=== PATIENT | male | born 1950 | race Caucasian/White ===

== ENCOUNTER → 2020-11-23 14:29 | Outpatient (BNVA) | payer MEDICARE, SELFPAY | PROVIDERS: PCP Internal Medicine; Visit Provider Internal Medicine Cardiovascular Disease | DX: I48.91 Unspecified atrial fibrillation (principal) | CPT/HCPCS: 93005; 99212 ==

== ENCOUNTER → 2020-12-12 14:59 | Outpatient (REF) | payer MEDICARE, SELFPAY ==
--- NOTE | 2020-12-12 11:50 | ECG_ITS ---
Hook-up date: 2020-12-12 16:18:00 Duration: 23:57:00 Test Indications: UNSPEC ATRIAL FIB Medications: [id number] QRS complexes 511 Ventricular ectopics which represent <1 % of total QRS comp. * Supraventricular ectopics which represent % of total QRS comp. * Paced QRS complexs which represent % of total QRS comp. VENTRICULAR ECTOPY 511 Isolated 0 Bigeminal Cycles 0 Couplets 0 Runs 0 Beats in Runs * Beats LONGEST at * BPM at :: -- * Beats FASTEST at * BPM at :: -- SUPRAVENTRICULAR ECTOPY * Isolated * Couplets * Runs * Beats in Runs * Beats LONGEST at * BPM at :: -- * Beats FASTEST at * BPM at :: -- HEART RATES 41 MIN at 12:33:24 2020-12-13 83 AVG 138 MAX at 19:37:10 2020-12-12 LONGEST RR 3.0160 secs at 11:52:37 2020-12-13 S-T LEVELS Channel 1 - 128 mm at 16:18:00 2020-12-12 - 128 mm at 16:18:00 2020-12-12 Channel 2 - 128 mm at 16:18:00 2020-12-12 - 128 mm at 16:18:00 2020-12-12 Channel 3 - 128 mm at 03:53:71 -- - 128 mm at 03:53:71 Basic rhythm Atrial fibrillation No long pause or profound bradycardia Adequate rate control with average HR of 83 bpm Occasional Premature ventricular complexes No diary submitted Referred By: Abdulaziz Chen Overread By: SUNITA MON MD
== END ==
LOC: HO.CARD 14:59
PROVIDERS: PCP Internal Medicine; Visit Provider Internal Medicine Cardiovascular Disease
DX: I48.91 Unspecified atrial fibrillation (principal)
CPT/HCPCS: 93226

== ENCOUNTER → 2021-02-15 14:07 | Outpatient (BNVA) | payer MEDICARE, SELFPAY | PROVIDERS: PCP Internal Medicine; Visit Provider Internal Medicine Cardiovascular Disease | DX: I48.91 Unspecified atrial fibrillation (principal); Z79.899 Other long term (current) drug therapy | CPT/HCPCS: 99212 ==

== ENCOUNTER → 2021-04-06 12:28 | Outpatient (BNVA) | payer MEDICARE, SELFPAY | PROVIDERS: PCP Internal Medicine; Referring Provider Internal Medicine; Visit Provider Internal Medicine Cardiovascular Disease | DX: I48.91 Unspecified atrial fibrillation (principal) | CPT/HCPCS: 93005; 99212 ==

== ENCOUNTER 2022-02-22 07:53 | Outpatient (REF) | payer OTHER, SELFPAY ==
[2022-02-22 08:16] LABS: Appearance Urine CLEAR; Color Urine DK YELLOW; Glucose Urine UA NEG (NEG); Leukocyte Esterase Urine TRACE (NEG); Nitrite Urine POS (NEG); Urine Blood 2+ (NEG); Urine Ketones 5 MG/DL (NEG); Urine Protein TRACE MG/DL (NEG-TRACE)
[2022-02-22 08:43] LABS: Amorphous Sediment Urine 2+ /LPF; Renal Epithelial Cells Urine TRACE /LPF; Squamous Epithelial Cell Urine TRACE /LPF
[2022-02-22 08:46] LABS: Bacteria Urine TRACE /LPF
== END 2022-02-22 07:54 | disposition home or self-care (01) ==
LOC: HO.LAB 07:53
PROVIDERS: Visit Provider Internal Medicine
DX: R30.0 Dysuria (principal)
CPT/HCPCS: 81001; 87086; 87088

== ENCOUNTER 2022-03-12 14:04 | Outpatient (REF) | payer MEDICARE, SELFPAY ==
[2022-03-12 14:45] LABS: Appearance Urine CLOUDY; Color Urine YELLOW; Glucose Urine UA NEG (NEG); Leukocyte Esterase Urine 2+ (NEG); Nitrite Urine NEG (NEG); Urine Blood 1+ (NEG); Urine Ketones 5 MG/DL (NEG); Urine Protein 1+ MG/DL (NEG-TRACE)
[2022-03-12 15:04] LABS: Bacteria Urine 3+ /LPF; Squamous Epithelial Cell Urine 1+ /LPF
== END 2022-03-12 14:05 | disposition home or self-care (01) ==
LOC: HO.LNP 14:04
PROVIDERS: Visit Provider Internal Medicine
DX: R30.0 Dysuria (principal)
CPT/HCPCS: 81001; 87086; 87088; 87186

== ENCOUNTER 2022-04-03 17:45 | Emergency (ER) | payer MEDICARE, SELFPAY ==
[2022-04-03 17:51] VITALS: BP 114/70; PULSE 77; RESP 18; TEMP 36.5; O2SAT 99; BMI 29.5
[2022-04-03 18:16] LABS: Appearance Urine HAZY; Color Urine YELLOW; Glucose Urine UA NEG (NEG); Leukocyte Esterase Urine 3+ (NEG); Nitrite Urine POS (NEG); PH 7.5 (5.0-8.0); Specific Gravity - Urine 1.015 (1.005-1.025); UACC Culture Trigger YES; Urine Blood 1+ (NEG); Urine Ketones 15 MG/DL (NEG); Urine Protein TRACE MG/DL (NEG-TRACE)
[2022-04-03 18:22] LABS: WBC Urine TNTC /HPF (0-4)
[2022-04-03 18:23] LABS: Bacteria Urine 3+ /LPF
[2022-04-03 18:28] LABS: MANUAL DIFF FLAG NO
[2022-04-03 18:43] LABS: Alanine Aminotransferase 17 U/L (0-40); Alkaline Phosphatase 77 U/L (39-117); Anion Gap 15 (12-20); Aspartate Amino Transferase 21 U/L (5-37); Bilirubin Total 1.8 mg/dL (0.0-1.0); Blood Urea Nitrogen 13 mg/dL (9-16); Calcium 9.4 mg/dL (8.4-10.2); Carbon Dioxide 24 mmol/L (22-29); Chloride 104 mmol/L (96-108); Creatinine Clr Calc Pharmacy 96.6; Estimated Glomerular Filt Rate > 60; Glucose Random 89 mg/dL (60-115); Potassium 4.3 mmol/L (3.3-5.1); Sodium 139 mmol/L (135-145); Total Protein 6.7 g/dL (6.5-8.0)
[2022-04-03 18:51] LABS: Basophils Percent Auto 0.3 % (0-2); Eosinophils Absolute Auto 0.1 X10*3/uL (0.0-0.4); Eosinophils Percent Auto 1.1 % (0-4); Hematocrit 49.5 % (42.0-52.0); Hemoglobin 16.3 g/dl (14.0-18.0); Imm Gran Abs Auto 0.03 X10*3/uL (0.00-0.03); Imm Gran Pct Auto 0.5 % (0.0-0.4); Lymphocytes Absolute Auto 1.3 X10*3/uL (1.2-4.9); Lymphocytes Percent Auto 19.9 % (20-40); Mean Corpuscular HGB Conc 32.9 g/dl (31.0-36.0); Mean Corpuscular Hemoglobin 29.5 pg (27.0-33.0); Mean Corpuscular Volume 89.7 fL (80.0-98.0); Mean Platelet Volume 10.1 fL (9.4-12.4); Monocytes Absolute Auto 0.5 X10*3/uL (0.1-1.2); Monocytes Percent Auto 8.4 % (2-11); Neutrophils Absolute Auto 4.4 x10*3/uL (2.0-8.3); Neutrophils Percent Auto 69.8 % (45-73); Platelet Count 213 X10*3/uL (160-400); Red Blood Count 5.52 X10*6/uL (4.60-5.80); Red Cell Distribution Width 13.1 % (11.0-16.0); White Blood Count 6.3 X10*3/uL (4.8-10.8)
[2022-04-04 01:44] VITALS: BP 138/80; PULSE 97; RESP 16; TEMP 36.1; O2SAT 98
--- NOTE | 2022-04-04 02:05 | ED_ITS ---
HPI - Male Genitourinary General Chief complaint: Urogenital-Male Stated complaint: Bladder Kidney Infection Time Seen by Provider: 04/04/22 01:25 Source: patient Mode of arrival: ambulatory History of Present Illness HPI Narrative: 71-year-old male who reports urine running down his leg and states that is difficult for him to completely empty his bladder and he has been on 4 courses of antibiotics without success. Patient states he is currently without fever, chills, nausea, vomiting but states he has started to experience his urinary infection symptoms again with frequency, burning. Related Data Previous Rx's Medication Instructions Recorded sulfamethoxazole 800 1 tab PO Q12H 14 Days #28 tab 04/04/22 mg-trimethoprim 160 mg tablet (Bactrim DS) Allergies Allergy/AdvReac Type Severity Reaction Status Date / Time No Known Allergies Allergy Verified 04/03/22 17:50 Review of Systems Review of Systems: Pertinent positives and negatives as stated in HPI 10 point review of systems is otherwise negative. PMFSH Past Medical History Source: nursing notes reviewed Social History Social History Advance Directives: No Physical Exam Vital Signs: Vital Signs: Last Vital Signs Temp 97.0 F 04/04/22 01:44 Pulse 97 04/04/22 01:44 Resp 16 04/04/22 01:44 BP 138/80 04/04/22 01:44 Pulse Ox 98 04/04/22 01:44 BMI result Body Mass Index 29.5 VITAL SIGNS: Reviewed. GENERAL: Well developed, well nourished, in no acute distress. HEAD: Normocephalic/atraumatic EYES: PERRLA, EOMI EARS: Ext canals without abnormality OROPHARYNX: no oral lesions noted, posterior pharynx clear LUNGS: Normal breath sounds. No adventitious sounds or accessory muscle use. SpO2<98> CARDIOVASCULAR: Regular rate and rhythm without noted murmurs ABDOMEN: Soft, non-tender, non-distended with bowel sounds. NEUROLOGIC: Alert and oriented x 4. Course Course Course Narrative: 71-year-old male with history and clinical presentation consistent overflow incontinence, enlarged prostate, and likely incomplete resolution of urinary tract infections secondary to enlarged prostate resulting in high PVRs. After discussion with the patient and his daughter who is at bedside he agreed to have the Mason catheter placed, PVRs are being done, he will receive initial antibiotics and then be discharged home and has an appointment with Urology on 04/20. MDM - Male Genitourinary Lab Data Result diagrams: 04/03/22 18:00 04/03/22 18:00 Labs: Lab Results 04/03/22 04/03/22 04/03/22 Range/Units 18:00 18:00 18:09 WBC 6.3 (4.8-10.8) X10*3/uL RBC 5.52 (4.60-5.80) X10*6/uL Hgb 16.3 (14.0-18.0) g/dl Hct 49.5 (42.0-52.0) % MCV 89.7 (80.0-98.0) fL MCH 29.5 (27.0-33.0) pg MCHC 32.9 (31.0-36.0) g/dl RDW 13.1 (11.0-16.0) % Plt Count 213 (160-400) X10*3/uL MPV 10.1 (9.4-12.4) fL Immature Gran % (Auto) 0.5 H (0.0-0.4) % Neut % (Auto) 69.8 (45-73) % Lymph % (Auto) 19.9 L (20-40) % [place] % (Auto) 8.4 (2-11) % Eos % (Auto) 1.1 (0-4) % Baso % (Auto) 0.3 (0-2) % Lymph # (Auto) 1.3 (1.2-4.9) X10*3/uL [place] # (Auto) 0.5 (0.1-1.2) X10*3/uL Eos # (Auto) 0.1 (0.0-0.4) X10*3/uL Baso # (Auto) 0.0 (0.0-0.2) X10*3/uL Abs Immat Gran (auto) 0.03 (0.00-0.03) X10*3/uL Absolute Neuts (auto) 4.4 (2.0-8.3) x10*3/uL Absolute Nucleated RBC 0.000 (0.0-0.012) X10*3/uL Nucleated RBC % (auto) 0.0 (0.0-0.2) /100WBC Sodium 139 (135-145) mmol/L Potassium 4.3 (3.3-5.1) mmol/L Chloride 104 (96-108) mmol/L Carbon Dioxide 24 (22-29) mmol/L Anion Gap 15 (12-20) BUN 13 (9-16) mg/dL Creatinine 0.89 (0.5-1.4) mg/dL Estim Creat Clear Calc 96.6 Estimated GFR > 60 Random Glucose 89 (60-115) mg/dL Calcium 9.4 (8.4-10.2) mg/dL Total Bilirubin 1.8 H (0.0-1.0) mg/dL AST 21 (5-37) U/L ALT 17 (0-40) U/L Alkaline Phosphatase 77 (39-117) U/L Total Protein 6.7 (6.5-8.0) g/dL Albumin 4.0 (3.5-5.0) g/dL Urine Color YELLOW Urine Appearance HAZY Urine pH 7.5 (5.0-8.0) Ur Specific [place] 1.015 (1.005-1.025) Urine Protein TRACE (NEG-TRACE) MG/DL Urine Glucose (UA) NEG (NEG) MG/DL Urine Ketones 15 (NEG) MG/DL Urine Blood 1+ H (NEG) Urine Nitrite POS H (NEG) Ur Leukocyte Esterase 3+ H (NEG) Urine RBC 5-9 H (0) /HPF Urine WBC TNTC H (0-4) /HPF Ur Squamous Epith Cells NONE /LPF Urine Bacteria 3+ /LPF Discharge Plan Discharge Clinical Impression: Enlarged prostate, Overflow incontinence, Acute UTI, Difficult Mason catheter placement Patient Disposition: Home, Self-Care Instructions: Urinary Incontinence (ED), Urinary Tract Infection in Men (DC), Mason Catheter Placement and Care (ED) Additional Instructions: 1. Resume all home medications as prescribed. 2. You may drink coffee, soda, water as much as you want to. 3. You need to complete the entire course of antibiotics as prescribed. 4. Keep the appointment with your primary care provider/urologist. Return to the ER for worsening symptoms. Prescriptions: New sulfamethoxazole-trimethoprim [Bactrim DS] 800-160 mg tablet 1 tab PO Q12H 14 Days Qty: 28 0RF Referrals: Misbah Jackson MD [Primary Care Provider] -
[2022-04-04] MEDS: Lidocaine HCl 2 % Urojet 10 ML JEL.PF.APP TOPICAL (02:24)
[2022-04-04] MEDS: Sulfamethox/Trimeth 800/160 TABLET 1 TAB PO (02:24)
--- NOTE | 2022-04-04 02:37 | PC.NURSE ---
Patient catheterized with 16 bulgarian. Patient tolerated the procedure well. Initial output of 400 cc's
[2022-04-04 02:57] VITALS: BP 121/76; PULSE 97; RESP 18; TEMP 36.3; O2SAT 96
--- NOTE | 2022-04-04 03:17 | PC.NURSE ---
pt a&o,no sob or chest pain. pt bladder scanned. Mason placed. Reviewed discharge instructions and education on placing leg bag. Pt verbalized understanding.
== END 2022-04-04 03:20 | disposition home or self-care (01) ==
PROVIDERS: Emergency Provider Student in an Organized Health Care Education/Training Program; PCP Internal Medicine
DX: N39.490 Overflow incontinence (principal); N39.0 Urinary tract infection, site not specified; N40.0 Benign prostatic hyperplasia without lower urinary tract symptoms
CPT/HCPCS: 36415; 51702; 51798; 80053; 81001; 85025; 87086; 87088; 87186; 99284

== ENCOUNTER 2024-06-22 14:00 | Outpatient (REF) | payer MEDICARE, SELFPAY ==
[2024-06-22 14:42] LABS: Appearance Urine Clear; Color Urine Yellow; Glucose Urine UA Negative (Negative); Leukocyte Esterase Urine Negative (Negative); Nitrite Urine Negative (Negative); PH 6.5 (5.0-9.0); Urine Blood Negative (Negative); Urine Ketones Negative (Negative); Urine Protein Negative (Neg-Trace)
[2024-06-22 14:45] LABS: Bacteria Urine None Seen (None Seen); Hyaline Casts Urine 0-2 /LPF (0-2); RBC Urine 0-2 /HPF (0-2); Squamous Epithelial Cell Urine 0-2 /HPF (0-2); WBC Urine 0-5 /HPF (0-5)
== END 2024-06-22 14:01 | disposition home or self-care (01) ==
LOC: HO.LNP 14:00
PROVIDERS: Visit Provider Internal Medicine
DX: R35.1 Nocturia (principal)
CPT/HCPCS: 81001; 87086

== ENCOUNTER 2025-05-17 10:03 | Inpatient (IN) | payer MEDICARE, SELFPAY ==
[2025-05-17] VITALS (11 sets, daily range): BP systolic 93–126; BP diastolic 43–74; PULSE 72–98; RESP 12–20; TEMP 36.4–36.8; O2SAT 95–98; BMI 24.8
--- NOTE | ~2025-05-17 | CT_ITS ---
EXAMINATION: CT HEAD WITHOUT CONTRAST CLINICAL INFORMATION: Worsening confusion on Coumadin. COMPARISON: None. Correlation made with MR brain 11/18/2018. TECHNIQUE: Contiguous axial imaging was performed from the skull base to vertex without intravenous administration of contrast. This CT examination was performed using dose optimization techniques as appropriate, variously including the following: *Automated exposure control *Adjustment of mA and/or kV according to patient size (this includes techniques or standardized protocols for targeted exams where dose is matched to indication/reason for exam; i.e. extremities or head) *Use of iterative reconstruction technique FINDINGS: There is no evidence of intracranial hemorrhage or extra-axial fluid collection. There is no mass effect, or edema. No CT evidence of acute territorial infarct. Ventricles, sulci, and cisterns are normal in size and configuration for patient age. No hydrocephalus. No midline shift. Negative hyperdense MCA sign. Negative insular ribbon sign. Patchy periventricular and deep white matter hypoattenuation is consistent with mild to moderate small vessel ischemic changes. Normal pituitary. Mild atheromatous calcification of the bilateral carotid siphons and V4 segments vertebral arteries bilaterally. Globes and orbital contents image normally. No extracranial soft tissue abnormalities. The paranasal sinuses, mastoid air cells, and tympanic cavities are normally aerated. No suspicious bony abnormalities. There are no acute fractures evident. CT/CT head/brain wo IV con IMPRESSION: No acute intracranial abnormality. Electronically signed by: Ray Tilley MD 05/17/2025 12:13 PM EDT
--- NOTE | ~2025-05-17 | CT_ITS ---
EXAMINATION: CT ABDOMEN AND PELVIS WITHOUT CONTRAST CLINICAL INFORMATION: Retention, distention DLP: 870 mGY*cm COMPARISON: None available. TECHNIQUE: Multidetector volumetric imaging was performed from the superior aspect of the liver through the pubic symphysis. Sagittal and coronal reformatted images were obtained on the technologist's workstation. This CT examination was performed using dose optimization techniques as appropriate, variously including the following: *Automated exposure control *Adjustment of mA and/or kV according to patient size (this includes techniques or standardized protocols for targeted exams where dose is matched to indication/reason for exam; i.e. extremities or head) *Use of iterative reconstruction technique FINDINGS: LUNG BASES: The visualized lung bases are unremarkable. LIVER, GALLBLADDER, AND BILIARY TREE: The liver is normal in size, shape, and attenuation. No focal hepatic lesion or biliary ductal dilatation is present. The gallbladder is unremarkable with no evidence of radiopaque gallstones, gallbladder wall thickening, or obvious pericholecystic inflammatory changes. PANCREAS: There is diffuse fatty infiltration. SPLEEN: Unremarkable. ADRENAL GLANDS: Right adrenal gland nodule measures 14 x 22 mm and -29 Hounsfield units diagnostic of a benign lipid rich adrenal adenoma. Left adrenal gland has nodular appearance with a 6 x 9 mm -15 Hounsfield unit benign lipid rich adrenal adenoma. KIDNEYS AND URETERS: Benign parapelvic cysts are present in both kidneys. There are also multiple benign simple renal cysts. The largest is posterior to the right kidney measuring 3.8 x 6.2 cm. BLADDER: The bladder is grossly distended extending into the supraumbilical portion of the abdomen measuring 19 cm superior-inferior. Posterior inferiorly, there is a [place] outpouching 7 cm in diameter that could represent a diverticulum. GASTROINTESTINAL TRACT: Small sliding hiatal hernia involves a gastric cardia. There is rectal wall thickening and perirectal fat stranding. There is moderate stool in the rectum. ABDOMINAL WALL: Small left inguinal hernia contains adipose tissue consistent with obstructive pneumonia. LYMPH NODES: Normal. VASCULAR: Mild vascular calcifications are present. PELVIC VISCERA: Unremarkable. OSSEOUS STRUCTURES: Extensive degenerative changes are present with facet arthropathy and degenerative disc disease. There are also bridging osteophytes along the vertebral bodies. CT/CT abdomen pelvis wo IV con IMPRESSION: Suspected stercoral involving the rectum. Other etiologies are not ruled out such as neoplasm, ischemia, infection, inflammatory bowel disease. Grossly distended bladder. Suspected neurogenic or less likely bladder outlet obstruction. Bilateral lipid rich adrenal adenomas requiring no further imaging follow-up. Fleischner guidelines were followed. Electronically signed by: Jude Jones MD 05/17/2025 03:02 PM EDT RP
--- NOTE | ~2025-05-17 | XR_ITS ---
EXAMINATION: XR CHEST 1 VIEW HISTORY: sepsis, weakness COMPARISON: There are no prior studies available for comparison. FINDINGS: Two AP portable views of the chest performed at 10:22 AM is submitted. The lungs are expanded and clear. There is no pleural effusion, pneumothorax, or pulmonary vascular congestion. The heart is normal in size. There is degenerative disc disease of the spine. XR/XR chest 1V IMPRESSION: No acute cardiopulmonary abnormality. Electronically signed by: Last Blanco MD 05/17/2025 10:43 AM EDT
--- NOTE | 2025-05-17 10:19 | ECG_ITS ---
Test Reason : weakness Blood Pressure : */* mmHG Vent. Rate : 82 BPM Atrial Rate : * BPM P-R Int : * ms QRS Dur : 68 ms QT Int : 364 ms P-R-T Axes : * 11 -83 degrees QTcB Int : [address] & T wave abnormality, consider anterior ischemia Abnormal ECG No previous ECGs available Referred By: Crissy Velazquez Electronically Signed By: RIOS PRO
--- NOTE | 2025-05-17 10:47 | ED.AMS ---
HPI - Altered Mental Status General Chief Complaint: Altered Mental Status Stated Complaint: +UTI,AMS,BP 70/47,FROM HOME PER EMS Time Seen by Provider: 05/17/25 10:12 Source: patient, family, EMS and old records reviewed Mode of arrival: EMS Limitations: altered mental status History of Present Illness ED Provider: LYDIA HPI narrative: 74 yo male with PMH of afib on coumadin, Parkinsons on sinemet, lives at home with family has been disoriented with poor PO intake, agitation for the past 3 weeks. He has been seen at [facility] ED and telehealth through PCP office. They have worked him up with labs and UA showing corynebacterium - S to vanco and meropenem. He has completed bactrim course end of April and dosed with fosfomycin x 1 on April 27. He seemed to improve a little bit but has worsened. He has confusion, poor PO intake. No falls reported. Has not had head CT done at this time during the confusion episodes either. MD complaint: altered mental status and confusion Onset (ago): week(s) (3 to 4) Timing confirmed by: family member Severity: moderate Consistency of symptoms: waxing and waning Context: other Associated symptoms: loss of appetite, malaise and weakness Related Data Home Medications ?Medication ?Instructions ?Recorded ?Confirmed alprazolam 0.5 mg tablet 0.5 mg PO BID PRN 11/23/20 04/06/21 cyclobenzaprine 10 mg tablet 10 mg PO BEDTIME PRN 11/23/20 04/06/21 finasteride 5 mg tablet 5 mg PO DAILY 11/23/20 04/06/21 irbesartan 75 mg tablet 75 mg PO BEDTIME 11/23/20 04/06/21 tamsulosin 0.4 mg capsule 0.4 mg PO DAILY 11/23/20 04/06/21 warfarin 5 mg tablet mg PO 11/23/20 04/06/21 Previous Rx's ?Medication ?Instructions ?Recorded diltiazem HCl 180 mg 180 mg PO DAILY #30 caps 04/10/21 capsule,extended release 24 hr (Cardizem CD) cephalexin 500 mg capsule 500 mg PO Q6H 10 days #40 caps 04/04/22 Allergies Allergy/AdvReac Type Severity Reaction Status Date / Time metoprolol Allergy Unknown lip swollen Verified 05/17/25 10:23 carvedilol Allergy facial Verified 05/17/25 10:23 swelling Review of Systems Review of Systems: ROS unable to be obtained due to altered mental status [facility] Past Medical History Attestation statement: The following information was validated with the patient. Source: old records reviewed Medical History (Updated 05/17/25 @ 16:29 by Crissy Velazquez DO) UTI (urinary tract infection) Parkinsons Afib Surgical History (System 04/04/22 @ 08:33 by Carolina Goode) History of total knee replacement (TKR) Family History Family History (System 04/04/22 @ 08:33 by Carolina Goode) Father Heart disease Mother No problems noted. Social History Social History Alcohol intake: current Alcohol intake frequency: 3 or more drinks per day Alcohol type: beer and hard liquor Tobacco use type: Cigar and Pipe Smoked in Last 30 Days: No Use of substances other than those prescribed or required for medical reasons: No Advance Directives: Yes Advance Directives Information Provided: Yes Advance Directives on File: No Physical Exam ED Vital Signs: Vital Signs - 24 hr 05/17/25 10:14 05/17/25 11:14 05/17/25 12:09 Temperature 98.2 F 97.6 F Pulse Rate 90 77 84 Respiratory Rate 17 12 20 Blood Pressure 97/43 L 98/43 L 120/62 Pulse Oximetry 95 95 96 Oxygen Delivery Method Room Air Room Air Room Air 05/17/25 12:31 05/17/25 12:32 05/17/25 14:49 Temperature 97.5 F Pulse Rate 86 83 72 Respiratory Rate 12 Blood Pressure 117/74 114/62 101/58 L Pulse Oximetry 98 Oxygen Delivery Method Room Air BMI result Body Mass Index 24.8 Appearance: Alert. Oriented X2. Mild acute distress. Eyes: Pupils equal, round and reactive to light. ENT: Pharynx dry MM. Neck: Normal inspection. Neck supple. CVS: tachycardic heart rate and rhythm. Pulses normal. Respiratory: No respiratory distress. Breath sounds normal. Abdomen: Soft and nontender. no grimace to palpation Skin: Skin warm and dry. Normal skin color. Normal skin turgor. Extremities: No lower extremity edema. No calf ttp Neuro: Oriented X 2. No motor deficit. No sensory deficit. tremors R hand Course Course Course Narrative: currently responding to IVF Reevaluation(s) Reevaluation #1: daughters who are HCP requesting imaging of abdomen/pelvis which is ordered. They know he is retaining but are hesitant to do a hemphill as the patient has refused in the past. 144pm Reevaluation #2: family and patient agree to hemphill catheter Medications Administered Generic Name Dose Route Start Last Admin Trade Name Freq PRN Reason Stop Dose Admin Lactated Ringer's 1,000 mls @ 80 mls/hr 05/17/25 15:15 05/17/25 15:59 Lr IVCONT 80 mls/hr .[id number] RYAN Administration Discontinued Medications Generic Name Dose Route Start Last Admin Trade Name Freq PRN Reason Stop Dose Admin Alprazolam 0.5 mg 05/17/25 13:04 05/17/25 13:20 Alprazolam 0.5 Mg Tablet PO 05/17/25 13:05 0.5 mg ONCE ONE Administration Carbidopa/Levodopa 1 tab 05/17/25 14:39 05/17/25 15:55 Carbidopa/Levodopa Cr 50/200 Tablet.Er PO 05/17/25 14:40 1 tab ONCE ONE Administration Diazepam 2 mg 05/17/25 15:01 05/17/25 15:16 Diazepam 10 Mg/2 Ml Cartridge IVPUSH 05/17/25 15:02 2 mg STAT STA Administration Ertapenem 1 gm 05/17/25 10:49 05/17/25 10:58 Ertapenem Sodium 1 Gm Vial IVPUSH 05/17/25 10:50 1 gm ONCE ONE Administration Lactated Ringer's 2,460 mls @ 2,460 mls/hr 05/17/25 10:22 05/17/25 12:30 Lr 30 ml/kg infuse over 1 hr (2460 ml) 05/17/25 11:21 Infused IV Infusion .Q1H ONE Lidocaine HCl 10 ml 05/17/25 12:29 05/17/25 12:50 Lidocaine Hcl 2 % Urojet 10 Ml Jel.Pf.Yury TOPICAL 05/17/25 12:30 10 ml ONCE ONE Administration Lidocaine HCl 10 ml 05/17/25 15:02 05/17/25 16:00 Lidocaine Hcl 2 % Urojet 10 Ml Jel.Pf.Yury TOPICAL 05/17/25 15:03 10 ml ONCE ONE Administration Sodium Biphosphate/Sodium Phosphate 133 ml 05/17/25 15:09 05/17/25 15:17 Sodium Phosphate,[place]-Dibasic 133 Ml Enema DC 05/17/25 15:10 133 ml ONCE ONE Administration Medical Decision Making Medical Decision Making [facility] Narrative: 74 yo male with PMH of afib on coumadin, Parkinsons on sinemet, lives at home with family now here with possible untreated urine with persistent confusion, poor PO intake, agitation. At this time will need labs, UA, CT head for SDH, he was hypotensive so 30cc/kg bolus ordered - he is not on chronic steroids. I am going to dose with ertapenem based off [facility] cultures. Family aware of plan. Patient is calm and cooperative here. Differential Diagnosis Differential Diagnoses: The differential diagnosis associated with the presentation includes pneumonia, UTI, bacteremia, TACOS, lyte abnormality Admission/Observation Consideration of admission/observation: Escalation of care including admission/observation considered admit for sepsis work up including IVF, stercoral colitis, retention. Consult Healthcare Provider Management of the patient was discussed with: Hospitalist (will admit) Lab Data [facility] Lab Attestation statement: I reviewed the patient's lab results. 05/17/25 10:57 05/17/25 10:57 Labs: Lab Results 05/17/25 05/17/25 05/17/25 Range/Units 10:57 10:58 13:10 WBC 13.2 H (4.8-10.8) X10*3/uL RBC 5.43 (4.60-5.80) X10*6/uL Hgb 15.7 (14.0-18.0) g/dl Hct 47.1 (42.0-52.0) % MCV 86.7 (80.0-98.0) fL MCH 28.9 (27.0-33.0) pg MCHC 33.3 (31.0-36.0) g/dl RDW 13.7 (11.0-16.0) % Plt Count 235 (160-400) X10*3/uL MPV 9.8 (9.4-12.4) fL Immature Gran % (Auto) 0.5 H (0.0-0.4) % Neut % (Auto) 86.1 H (45-73) % Lymph % (Auto) 6.6 L (20-40) % [place] % (Auto) 6.2 (2-11) % Eos % (Auto) 0.2 (0-4) % Baso % (Auto) 0.4 (0-2) % Lymph # (Auto) 0.9 L (1.2-4.9) X10*3/uL [place] # (Auto) 0.8 (0.1-1.2) X10*3/uL Eos # (Auto) 0.0 (0.0-0.4) X10*3/uL Baso # (Auto) 0.1 (0.0-0.2) X10*3/uL Abs Immat Gran (auto) 0.06 H (0.00-0.03) X10*3/uL Absolute Neuts (auto) 11.4 H (2.0-8.3) x10*3/uL Absolute Nucleated RBC 0.000 (0.0-0.012) X10*3/uL Nucleated RBC % (auto) 0.0 (0.0-0.2) /100WBC PT 22.8 H (10.9-12.4) SEC INR 2.0 H (0.9-1.1) Sodium 137 (135-145) mmol/L Potassium 4.1 (3.3-5.1) mmol/L Chloride 105 (96-108) mmol/L Carbon Dioxide 24 (22-29) mmol/L Anion Gap 12 (12-20) BUN 13 (9-16) mg/dL Creatinine 0.86 (0.5-1.4) mg/dL Estim Creat Clear Calc 81.4 Estimated GFR > 60 Random Glucose 115 (60-115) mg/dL Lactic Acid 2.2 H* (0.5-2.0) mmol/L Lactic Acid F/U @ 2Hr 1.6 (0.5-2.0) mmol/L Calcium 8.4 D (8.4-10.2) mg/dL Magnesium 2.0 (1.6-2.6) mg/dL Total Bilirubin 1.5 H (0.0-1.0) mg/dL Direct Bilirubin 0.6 H (0.0-0.5) mg/dL AST 21 (5-37) U/L ALT < 6 (0-40) U/L Alkaline Phosphatase 55 (39-117) U/L Troponin I High Sens 4.4 (<3.5-35.0) ng/L C-Reactive Protein 0.12 (< or = 0.50) mg/dL B-Natriuretic Peptide 222 H (<100) pg/mL Total Protein 6.1 L (6.5-8.0) g/dL Albumin 3.5 (3.5-5.0) g/dL Lipase 7 L (8-78) U/L Procalcitonin 0.03 ng/mL Urine Color Urine Appearance Urine pH (5.0-9.0) Ur Specific [place] (1.005-1.025) Urine Protein (Neg-Trace) mg/dL Urine Glucose (UA) (Negative) mg/dL Urine Ketones (Negative) mg/dL Urine Blood (Negative) Urine Nitrite (Negative) Ur Leukocyte Esterase (Negative) Urine RBC (0-2) /HPF Urine WBC (0-5) /HPF Ur Squamous Epith Cells (0-2) /HPF Urine Bacteria (None Seen) Hyaline Casts (0-2) /LPF Influenza Type A (PCR) NEGATIVE (Negative) Influenza Type B (PCR) NEGATIVE (Negative) RSV RNA Qual (PCR) NEGATIVE (Negative) SARS-CoV-2 RNA (RT-PCR) NEGATIVE (Negative) 05/17/25 Range/Units 15:56 WBC (4.8-10.8) X10*3/uL RBC (4.60-5.80) X10*6/uL Hgb (14.0-18.0) g/dl Hct (42.0-52.0) % MCV (80.0-98.0) fL MCH (27.0-33.0) pg MCHC (31.0-36.0) g/dl RDW (11.0-16.0) % Plt Count (160-400) X10*3/uL MPV (9.4-12.4) fL Immature Gran % (Auto) (0.0-0.4) % Neut % (Auto) (45-73) % Lymph % (Auto) (20-40) % [place] % (Auto) (2-11) % Eos % (Auto) (0-4) % Baso % (Auto) (0-2) % Lymph # (Auto) (1.2-4.9) X10*3/uL [place] # (Auto) (0.1-1.2) X10*3/uL Eos # (Auto) (0.0-0.4) X10*3/uL Baso # (Auto) (0.0-0.2) X10*3/uL Abs Immat Gran (auto) (0.00-0.03) X10*3/uL Absolute Neuts (auto) (2.0-8.3) x10*3/uL Absolute Nucleated RBC (0.0-0.012) X10*3/uL Nucleated RBC % (auto) (0.0-0.2) /100WBC PT (10.9-12.4) SEC INR (0.9-1.1) Sodium (135-145) mmol/L Potassium (3.3-5.1) mmol/L Chloride (96-108) mmol/L Carbon Dioxide (22-29) mmol/L Anion Gap (12-20) BUN (9-16) mg/dL Creatinine (0.5-1.4) mg/dL Estim Creat Clear Calc Estimated GFR Random Glucose (60-115) mg/dL Lactic Acid (0.5-2.0) mmol/L Lactic Acid F/U @ 2Hr (0.5-2.0) mmol/L Calcium (8.4-10.2) mg/dL Magnesium (1.6-2.6) mg/dL Total Bilirubin (0.0-1.0) mg/dL Direct Bilirubin (0.0-0.5) mg/dL AST (5-37) U/L ALT (0-40) U/L Alkaline Phosphatase (39-117) U/L Troponin I High Sens (<3.5-35.0) ng/L C-Reactive Protein (< or = 0.50) mg/dL B-Natriuretic Peptide (<100) pg/mL Total Protein (6.5-8.0) g/dL Albumin (3.5-5.0) g/dL Lipase (8-78) U/L Procalcitonin ng/mL Urine Color Yellow Urine Appearance Clear Urine pH 6.5 (5.0-9.0) Ur Specific [place] 1.015 (1.005-1.025) Urine Protein Trace (Neg-Trace) mg/dL Urine Glucose (UA) Negative (Negative) mg/dL Urine Ketones 15 (Negative) mg/dL Urine Blood Large (3+) H (Negative) Urine Nitrite Negative (Negative) Ur Leukocyte Esterase Trace H (Negative) Urine RBC >20 H (0-2) /HPF Urine WBC 0-5 (0-5) /HPF Ur Squamous Epith Cells 0-2 (0-2) /HPF Urine Bacteria None Seen (None Seen) Hyaline Casts 0-2 (0-2) /LPF Influenza Type A (PCR) (Negative) Influenza Type B (PCR) (Negative) RSV RNA Qual (PCR) (Negative) SARS-CoV-2 RNA (RT-PCR) (Negative) Independent Interpretation I performed an independent interpretation of an: EKG, Plain X-Ray (normal ) and CT Scan (normal ) Interpretation: Rate: 82 Rhythm: afib [place]: normal Normal QRS complex. ST T wave : inverted t waves V1-V5, no ANDRES qTC: 425 prior studies: no prior The study has been interpreted contemporaneously by me. . Radiology Impression Discussion of test interpretation with radiology: I have reviewed the radiologist's reading. Independent Historian Clinical information obtained from an independent historian. History obtained from or confirmed by: EMS daughters who are HCP requesting imaging of abdomen/pelvis which is ordered. They know he is retaining but are hesitant to do a hemphill as the patient has refused in the past. 144pm External Record Review External record reviewed: Outpatient record and Prior outpatient labs Procedures Procedure Narrative Procedure Narrative: hemphill catheter 16F coude - betadine, urojet, sterile gloves - passed no issue x 1 with clear yellow urine verbal consent from patient and family Rectal Disimpaction Time out performed rectal disimpaction: Yes Indication: fecal impaction Procedural Sedation: Yes Sedation/Analgesia: benzodiazepines Technique: manual disimpaction with gloved finger Result: significant stool output Patient Tolerated Procedure: well and no complications Complications: none Critical Care Time Critical Care Time Critical Care Time: Yes Total Critical Care Time: 60 Attestation: Time is exclusive of separately billable procedures. Time includes: direct patient care, patient reassessment, coordination of patient care, interpretation of data (laboratory data, pulse oximetry, CT scans chest xrays), review of patient's medical records, medical consultation and documentation of patient care. sepsis work up and 30cc/kg bolus, family discussions. Procedures excluded from critical care time: electrocardiography. I attest to this time spent taking care of the patient Discharge Plan Discharge Clinical Impression: Altered mental status, Acute urinary retention, Fecal impaction, Stercoral colitis Patient Disposition: Admitted As Inpatient Print Language: Italian
[2025-05-17 11:04] LABS: MANUAL DIFF FLAG NO
[2025-05-17 11:06] LABS: Hematocrit 47.1 % (42.0-52.0); Hemoglobin 15.7 g/dl (14.0-18.0); Imm Gran Abs Auto 0.06 X10*3/uL (0.00-0.03); Imm Gran Pct Auto 0.5 % (0.0-0.4); Lymphocytes Absolute Auto 0.9 X10*3/uL (1.2-4.9); Mean Corpuscular HGB Conc 33.3 g/dl (31.0-36.0); Mean Corpuscular Hemoglobin 28.9 pg (27.0-33.0); Mean Corpuscular Volume 86.7 fL (80.0-98.0); NRBC Abs Auto 0.000 X10*3/uL (0.0-0.012); NRBC Pct Auto 0.0 /100WBC (0.0-0.2); Platelet Count 235 X10*3/uL (160-400); Red Blood Count 5.43 X10*6/uL (4.60-5.80); White Blood Count 13.2 X10*3/uL (4.8-10.8)
[2025-05-17 11:13] LABS: INTERNATIONAL NORM RATIO 2.0 (0.9-1.1); Prothrombin Time 22.8 SEC (10.9-12.4)
[2025-05-17 11:24] LABS: Troponin-I High Sensitivity 4.4 ng/L (<3.5-35.0)
[2025-05-17 11:24] LABS: B Type Natriuretic Peptide 222 pg/mL (<100)
[2025-05-17 11:28] LABS: Alanine Aminotransferase < 6 U/L (0-40); Albumin Level 3.5 g/dL (3.5-5.0); Alkaline Phosphatase 55 U/L (39-117); Anion Gap 12 (12-20); Aspartate Amino Transferase 21 U/L (5-37); Blood Urea Nitrogen 13 mg/dL (9-16); Calcium 8.4 mg/dL (8.4-10.2); Carbon Dioxide 24 mmol/L (22-29); Chloride 105 mmol/L (96-108); Creatinine Clr Calc Pharmacy 81.4; Estimated Glomerular Filt Rate > 60; Lipase 7 U/L (8-78); Magnesium 2.0 mg/dL (1.6-2.6); Potassium 4.1 mmol/L (3.3-5.1); Sodium 137 mmol/L (135-145); Total Protein 6.1 g/dL (6.5-8.0)
[2025-05-17 11:38] LABS: Procalcitonin 0.03 ng/mL
[2025-05-17 11:40] LABS: Resp Syncy Virus RNA Qual PCR NEGATIVE (Negative); SARS COV2 PCR INHOUSE NEGATIVE (Negative)
[2025-05-17] MEDS: Lidocaine HCl 2 % Urojet 10 ML JEL.PF.APP TOPICAL ×2 (12:50→16:00)
--- NOTE | 2025-05-17 12:51 | PC.NURSE ---
Pt to ED via EMS for reports of AMS. Pt calm and cooperative with care. Afebrile, labs collected and sent. IVF and abx admin per MAR. Attempted to obtain u/a via straight cath, unsuccessful. Provider aware and plans to have pt void on own to obtain urine sample.
[2025-05-17 13:02] LABS: Reflex Lactate? Lactic Acid Added
[2025-05-17 13:31] LABS: ~Lactic Acid-LAB USE ONLY 1.6 mmol/L (0.5-2.0)
--- NOTE | 2025-05-17 13:36 | PC.NURSE ---
Pt bladder scan for >1066mL and reports feeling urge to urinate but is unable. MD notified.
[2025-05-17] MEDS: diazePAM 10 MG/2 ML CARTRIDGE 2 MG IVPUSH (15:16)
[2025-05-17] MEDS: Carbidopa/Levodopa CR 50/200 TABLET.ER 1 TAB PO (15:55)
[2025-05-17] MEDS: Lactated Ringers 1,000 ML 80 ML IVCONT (15:59)
[2025-05-17 16:05] LABS: Appearance Urine Clear; Glucose Urine UA Negative (Negative); PH 6.5 (5.0-9.0); Specific Gravity - Urine 1.015 (1.005-1.025); UMIC TRIGGER UACC YES
--- NOTE | 2025-05-17 16:15 | PC.NURSE ---
ATTEMPTED STRAIGHT CATH ON PATIENT, UNABLE TO PASS. MADE AWARE. PLACED COUDE VIGIL PATIENT HAD MORE THAN 1000CC URINE OUTPUT AND STILL DRAINING. UA SENT
--- NOTE | 2025-05-17 17:18 | PM.IMHP ---
History of Present Illness Date of Service: 05/17/25 Chief Complaint: ams 74M PMH parkinsons with lewy body dementia, chronic afib on warfarin, history of provoked DVT, BPH, presented with AMS. At baseline patient lives at home with his . Ambulates with a walker. Can communicate and is usually aware of family members, does get confused with hallucinations, needs help with most ADLs. Patient recently treated for suspected UTI with coronary back to her with course of fosfomycin and Bactrim. Appear to have some improvement but after completing started to become more confused and weak. EMS was called patient found to be hypotensive. In ED given 30 cc/kilos, blood pressure improved from systolic of 70s to low 100s. Noted to have urinary retention, Hemphill placed, urine with some RBCs but no bacteria, but fairly cloudy with sediment on exam. CT abdomen showed suspected stercoral involving the rectum, grossly distended bladder. Review of Systems Review of Systems: Yes all other systems are reviewed and are negative [facility] Medical History UTI (urinary tract infection) Parkinsons Afib Family History Father Heart disease Mother No problems noted. Surgical History History of total knee replacement (TKR) Social History Alcohol intake: current Alcohol intake frequency: 3 or more drinks per day Alcohol type: beer and hard liquor Tobacco use type: Cigar and Pipe Smoked in Last 30 Days: No Use of substances other than those prescribed or required for medical reasons: No Advance Directives: Yes Advance Directives Information Provided: Yes Advance Directives on File: No Meds Allergies Allergy/AdvReac Type Severity Reaction Status Date / Time metoprolol Allergy Unknown lip swollen Verified 05/17/25 10:23 carvedilol Allergy facial Verified 05/17/25 10:23 swelling Active Medications: Current Medications Acetaminophen (Acetaminophen 325 Mg Tablet) 650 mg PO Q6H PRN PRN Reason: Pain, Mild 1-3,fever,headache Calcium Carbonate (Calcium Carbonate 750 Mg Tab.Chew) 750 mg PO Q4H PRN PRN Reason: Heartburn Lactated Ringer's (Lr) 1,000 mls @ 80 mls/hr IVCONT .[id number] RYAN Last Admin: 05/17/25 15:59 Dose: 80 mls/hr Magnesium Hydroxide (Milk Of Magnesia 30 Ml Oral.Susp) 30 ml PO DAILY PRN PRN Reason: Constipation Melatonin (Melatonin 3 Mg Tablet) 6 mg PO BEDTIME PRN PRN Reason: Insomnia Meropenem (Meropenem 1 Gm Vial) 1 gm IVPUSH Q8H RYAN Olanzapine (Olanzapine 10 Mg Vial) 2.5 mg IM DAILY PRN PRN Reason: agitation Sodium Chloride (0.9 % Sodium Chloride Flush 3 Ml Syringe) 3 ml IVFLUSH QSHIFT RYAN Home Medications ?Medication ?Instructions ?Recorded ?Confirmed ?Last Taken ?Type alprazolam 0.5 mg tablet 0.5 mg PO BID PRN Anxiety 11/23/20 04/06/21 Unknown History cyclobenzaprine 10 mg tablet 10 mg PO BEDTIME PRN 11/23/20 04/06/21 Unknown History finasteride 5 mg tablet 5 mg PO DAILY 11/23/20 04/06/21 Unknown History irbesartan 75 mg tablet 75 mg PO BEDTIME 11/23/20 04/06/21 Unknown History tamsulosin 0.4 mg capsule 0.4 mg PO DAILY 11/23/20 04/06/21 Unknown History carbidopa ER 50 mg-levodopa 200 mg 1 tab PO BID 05/17/25 Unknown History tablet,extended release docusate sodium 100 mg capsule 100 mg PO DAILY 05/17/25 Unknown History gabapentin 100 mg capsule 200 mg PO BEDTIME 05/17/25 Unknown History modafinil 100 mg tablet 100 mg PO DAILY 05/17/25 Unknown History trazodone 50 mg tablet 50 mg PO BEDTIME 05/17/25 Unknown History warfarin 5 mg tablet mg PO 05/17/25 Unknown History Physical Exam Vital Signs and Narrative: Vital Signs: Last Vital Signs Temp 98.1 F 05/17/25 16:27 Pulse 91 05/17/25 16:27 Resp 16 05/17/25 16:27 BP 103/58 L 05/17/25 16:27 Pulse Ox 95 05/17/25 16:27 O2 Del Method Room Air 05/17/25 16:27 BMI result Body Mass Index 24.8 lethargic, non paritcipatory lungs clear, abd soft, non tender hemphill with cloudy urine Results Labs 05/17/25 10:57 05/17/25 10:57 Labs: Laboratory Results - last 24 hr 05/17/25 05/17/25 05/17/25 10:57 10:58 13:10 MCV 86.7 MCH 28.9 MCHC 33.3 RDW 13.7 Plt Count 235 MPV 9.8 Immature Gran % (Auto) 0.5 H Neut % (Auto) 86.1 H Lymph % (Auto) 6.6 L [place] % (Auto) 6.2 Eos % (Auto) 0.2 Baso % (Auto) 0.4 Lymph # (Auto) 0.9 L Kimball # (Auto) 0.8 Eos # (Auto) 0.0 Baso # (Auto) 0.1 Abs Immat Gran (auto) 0.06 H Absolute Neuts (auto) 11.4 H Absolute Nucleated RBC 0.000 Nucleated RBC % (auto) 0.0 PT 22.8 H INR 2.0 H Anion Gap 12 Estim Creat Clear Calc 81.4 Estimated GFR > 60 Random Glucose 115 Lactic Acid 2.2 H* Lactic Acid F/U @ 2Hr 1.6 Calcium 8.4 D Magnesium 2.0 Total Bilirubin 1.5 H Direct Bilirubin 0.6 H AST 21 ALT < 6 Alkaline Phosphatase 55 C-Reactive Protein 0.12 B-Natriuretic Peptide 222 H Total Protein 6.1 L Albumin 3.5 Lipase 7 L Procalcitonin 0.03 Urine Color Urine Appearance Urine pH Ur Specific [place] Urine Protein Urine Glucose (UA) Urine Ketones Urine Blood Urine Nitrite Ur Leukocyte Esterase Urine RBC Urine WBC Ur Squamous Epith Cells Urine Bacteria Hyaline Casts Influenza Type A (PCR) NEGATIVE Influenza Type B (PCR) NEGATIVE RSV RNA Qual (PCR) NEGATIVE SARS-CoV-2 RNA (RT-PCR) NEGATIVE 05/17/25 15:56 MCV MCH MCHC RDW Plt Count MPV Immature Gran % (Auto) Neut % (Auto) Lymph % (Auto) [place] % (Auto) Eos % (Auto) Baso % (Auto) Lymph # (Auto) [place] # (Auto) Eos # (Auto) Baso # (Auto) Abs Immat Gran (auto) Absolute Neuts (auto) Absolute Nucleated RBC Nucleated RBC % (auto) PT INR Anion Gap Estim Creat Clear Calc Estimated GFR Random Glucose Lactic Acid Lactic Acid F/U @ 2Hr Calcium Magnesium Total Bilirubin Direct Bilirubin AST ALT Alkaline Phosphatase C-Reactive Protein B-Natriuretic Peptide Total Protein Albumin Lipase Procalcitonin Urine Color Yellow Urine Appearance Clear Urine pH 6.5 Ur Specific [place] 1.015 Urine Protein Trace Urine Glucose (UA) Negative Urine Ketones 15 Urine Blood Large (3+) H Urine Nitrite Negative Ur Leukocyte Esterase Trace H Urine RBC >20 H Urine WBC 0-5 Ur Squamous Epith Cells 0-2 Urine Bacteria None Seen Hyaline Casts 0-2 Influenza Type A (PCR) Influenza Type B (PCR) RSV RNA Qual (PCR) SARS-CoV-2 RNA (RT-PCR) Imaging Radiologist's Impressions: Impressions Chest X-Ray 05/17/25 09:21 IMPRESSION: No acute cardiopulmonary abnormality. Electronically signed by: Last Blanco MD 05/17/2025 10:43 AM EDT RP Head CT 05/17/25 11:27 IMPRESSION: No acute intracranial abnormality. Electronically signed by: Ray Tilley MD 05/17/2025 12:13 PM EDT RP Abdomen/Pelvis CT 05/17/25 13:24 IMPRESSION: Suspected stercoral involving the rectum. Other etiologies are not ruled out such as neoplasm, ischemia, infection, inflammatory bowel disease. Grossly distended bladder. Suspected neurogenic or less likely bladder outlet obstruction. Bilateral lipid rich adrenal adenomas requiring no further imaging follow-up. Fleischner guidelines were followed. Electronically signed by: Jude Jones MD 05/17/2025 03:02 PM EDT RP Assessment and Plan (1) Acute urinary retention: Status: Acute Plan 74M PMH parkinsons with lewy body dementia, chronic afib on warfarin, history of provoked DVT, BPH, presented with AMS Severe sepsis and acute metabolic encephalopathy due to suspected urinary tract infection with multidrug resistant organism due to urinary retention Hemphill catheter placed, Urology eval, empiric meropenem and follow up cultures Avoid Haldol if delirious, can use atypical antipsychotics Chronic AFib Hold verapamil for hypotension, continue warfarin Parkinson's with Lewy body dementia Sinemet DVT prophylaxis-warfarin DNR/DNI Quality Stroke Does the patient have a stroke diagnosis?: No VTE Prior VTE?: No VTE Risk Level:: Medical - moderate - high VTE Device Contraindication: Treatment Not Indicated VTE Drug Contraindication: N/A - Med Ordered
--- NOTE | 2025-05-17 17:54 | PHA.MEDREC ---
Addendum entered by Trinh Can RPh 05/17/25 18:11: Reviewed by [facility]. Noted that alprazolam is reported by daughter to be BID but claims and pdmp only support daily dosing. Daughter also states gabapentin is changed to 100 mg at bedtime instead of 200 mg at bedtime. Original Note: Pharmacy Consult ? Medication Reconciliation Pharmacy has completed the medication reconciliation. Spoke with pt daughter at bedside and she was able to confirm the pt medications. Pt daughter confirmed the Pt takes his Carbidopa-Levodopa 25-100mg tab 1 tab at bedtime and his Carbidopa-Levodopa 50-200mg 1 tab in the morning before breakfast and 1 tablet in the late afternoon. Pt daughter also confirmed the pt takes his Gabapentin 100mg cap 1 cap at bedtime instead of 2 caps as written. PT daughter confirmed the pt Warfarin 5mg tab, confirming he is taking 5mg on [place]SA and 2.5mg on FR; pt was due to get his INR re-tested at home yesterday but pt daughter states he was too ill to get it done .
[2025-05-17] MEDS: Carbidopa/Levodopa CR 25/100 TABLET.ER 1 TAB PO (20:45)
--- NOTE | 2025-05-17 21:39 | PC.NURSE ---
Blood pressure trending down, changed cuff to smaller size, recheck blood pressure of 126/65. Recheck in 15 minutes.
--- NOTE | 2025-05-17 21:40 | PC.NURSE ---
Pt c/o being chilly, checked oral temp, 98.1. Covered pt with blanket and offered warmed blanket. Pt is resting comfortably.
--- NOTE | 2025-05-17 23:22 | PC.NURSE ---
pt's daughter at bedside, pt very anxious and restless. puling at tubes and wires. pt medicated with PRN medication per MAR for anxiety
--- NOTE | 2025-05-17 23:59 | PC.NURSE ---
daughter left for the night, pt repositioned to L side per his request
[2025-05-18] VITALS (11 sets, daily range): BP systolic 105–154; BP diastolic 56–87; PULSE 64–102; RESP 14–22; TEMP 36.1–36.9; O2SAT 94–99
--- NOTE | 2025-05-18 00:14 | PC.NURSE ---
pt incont of small amount of stool. assist with washing and changing bed pads. pt resting comfortably in bed at this time
[2025-05-18] MEDS: Lactated Ringers 1,000 ML 80 ML IVCONT ×2 (04:42→16:32)
--- NOTE | 2025-05-18 04:47 | PC.NURSE ---
Attempting to reposition patient, stool was noted on marion. Cleaned patient and repositioned. Pt resting comfortably.
[2025-05-18 04:56] LABS: Hematocrit 43.9 % (42.0-52.0); Hemoglobin 14.9 g/dl (14.0-18.0); Mean Corpuscular HGB Conc 33.9 g/dl (31.0-36.0); Mean Corpuscular Hemoglobin 29.0 pg (27.0-33.0); Mean Corpuscular Volume 85.4 fL (80.0-98.0); NRBC Abs Auto 0.000 X10*3/uL (0.0-0.012); NRBC Pct Auto 0.0 /100WBC (0.0-0.2); Platelet Count 195 X10*3/uL (160-400); Red Blood Count 5.14 X10*6/uL (4.60-5.80); White Blood Count 8.0 X10*3/uL (4.8-10.8)
[2025-05-18 05:10] LABS: INTERNATIONAL NORM RATIO 2.8 (0.9-1.1); Prothrombin Time 31.6 SEC (10.9-12.4)
[2025-05-18 05:20] LABS: Anion Gap 13 (12-20); Blood Urea Nitrogen 13 mg/dL (9-16); Calcium 7.9 mg/dL (8.4-10.2); Carbon Dioxide 24 mmol/L (22-29); Chloride 108 mmol/L (96-108); Creatinine Clr Calc Pharmacy 92.1; Estimated Glomerular Filt Rate > 60; Potassium 3.8 mmol/L (3.3-5.1); Sodium 141 mmol/L (135-145)
--- NOTE | 2025-05-18 06:21 | PC.NURSE ---
pt restless upon waking up, frequent redirection needed
[2025-05-18] MEDS: Carbidopa/Levodopa CR 50/200 TABLET.ER 1 TAB PO ×2 (07:40→16:35)
--- NOTE | 2025-05-18 10:09 | HO.PM.IMPN ---
Subjective Subjective Date of Service: 05/18/25 Interval History: more awake but still lethargic Physical Exam Vital Signs: Vital Signs: Last Vital Signs Temp 97.6 F 05/18/25 06:00 Pulse 85 05/18/25 08:31 Resp 22 H 05/18/25 06:00 BP 121/76 05/18/25 08:31 Pulse Ox 94 05/18/25 06:00 O2 Del Method Room Air 05/18/25 06:00 BMI result Body Mass Index 24.8 lethargic, oriented to person, resting tremor, lungs clear Objective Data Active Medications Acetaminophen (Acetaminophen 325 Mg Tablet) 650 mg PO Q6H PRN PRN Reason: Pain, Mild 1-3,fever,headache Alprazolam (Alprazolam 0.5 Mg Tablet) 0.5 mg PO BEDTIME PRN PRN Reason: Anxiety Last Admin: 05/17/25 23:12 Dose: 0.5 mg Documented By: MEGAN Calcium Carbonate (Calcium Carbonate 750 Mg Tab.Chew) 750 mg PO Q4H PRN PRN Reason: Heartburn Carbidopa/Levodopa (Carbidopa/Levodopa Cr 25/100 Tablet.Er) 1 tab PO BEDTIME [facility] Last Admin: 05/17/25 20:45 Dose: 1 tab Documented By: CESAR Carbidopa/Levodopa (Carbidopa/Levodopa Cr 50/200 Tablet.Er) 1 tab PO BID@0730,1630 [facility] Last Admin: 05/18/25 07:40 Dose: 1 tab Documented By: ANYI Docusate Sodium (Docusate Sodium 100 Mg Capsule) 100 mg PO DAILY [facility] Last Admin: 05/18/25 08:44 Dose: 100 mg Documented By: ANYI Gabapentin (Gabapentin 100 Mg Capsule) 100 mg PO BEDTIME [facility] Last Admin: 05/17/25 20:45 Dose: 100 mg Documented By: CESAR Lactated Ringer's (Lr) 1,000 mls @ 80 mls/hr IVCONT .[id number] [facility] Last Admin: 05/18/25 04:42 Dose: 80 mls/hr Documented By: MEGAN Magnesium Hydroxide (Milk Of Magnesia 30 Ml Oral.Susp) 30 ml PO DAILY PRN PRN Reason: Constipation Melatonin (Melatonin 3 Mg Tablet) 6 mg PO BEDTIME PRN PRN Reason: Insomnia Last Admin: 05/17/25 23:12 Dose: 6 mg Documented By: MEGAN Meropenem (Meropenem 1 Gm Vial) 1 gm IVPUSH Q8H [facility] Last Admin: 05/18/25 08:44 Dose: 1 gm Documented By: ANYI Modafinil (Modafinil 100 Mg Tablet) 100 mg PO DAILY [facility] Last Admin: 05/18/25 08:44 Dose: 100 mg Documented By: ANYI Olanzapine (Olanzapine 10 Mg Vial) 2.5 mg IM DAILY PRN PRN Reason: agitation Psyllium Hydrophilic Mucilloid (Psyllium Seed 3.7 Gm Packet) 3.7 gm PO DAILY [facility] Sodium Chloride (0.9 % Sodium Chloride Flush 3 Ml Syringe) 3 ml IVFLUSH QSHIFT [facility] Last Admin: 05/18/25 09:02 Dose: Not Given Documented By: ANYI Non-Admin Reason: IV Running Tamsulosin HCl (Tamsulosin Hcl 0.4 Mg Capsule) 0.4 mg PO DAILY@1700 [facility] Trazodone HCl (Trazodone Hcl 50 Mg Tablet) 50 mg PO BEDTIME [facility] Last Admin: 05/17/25 20:45 Dose: 50 mg Documented By: CESAR Warfarin Sodium (Warfarin Sodium 2.5 Mg Tablet) 2.5 mg PO Fr@1800 RYAN Warfarin Sodium (Warfarin Sodium 5 Mg Tablet) 5 mg PO SuMoTuWeThSa@1800 [facility] Last Admin: 05/17/25 20:45 Dose: 5 mg Documented By: CESAR Labs 05/18/25 04:19 05/18/25 04:19 Labs: Laboratory Results - last 24 hr 05/17/25 05/17/25 05/17/25 10:57 10:58 13:10 MCV 86.7 MCH 28.9 MCHC 33.3 RDW 13.7 Plt Count 235 MPV 9.8 Immature Gran % (Auto) 0.5 H Neut % (Auto) 86.1 H Lymph % (Auto) 6.6 L [place] % (Auto) 6.2 Eos % (Auto) 0.2 Baso % (Auto) 0.4 Lymph # (Auto) 0.9 L [place] # (Auto) 0.8 Eos # (Auto) 0.0 Baso # (Auto) 0.1 Abs Immat Gran (auto) 0.06 H Absolute Neuts (auto) 11.4 H Absolute Nucleated RBC 0.000 Nucleated RBC % (auto) 0.0 PT 22.8 H INR 2.0 H Anion Gap 12 Estim Creat Clear Calc 81.4 Estimated GFR > 60 Random Glucose 115 Lactic Acid 2.2 H* Lactic Acid F/U @ 2Hr 1.6 Calcium 8.4 D Magnesium 2.0 Total Bilirubin 1.5 H Direct Bilirubin 0.6 H AST 21 ALT < 6 Alkaline Phosphatase 55 C-Reactive Protein 0.12 B-Natriuretic Peptide 222 H Total Protein 6.1 L Albumin 3.5 Lipase 7 L Procalcitonin 0.03 Urine Color Urine Appearance Urine pH Ur Specific [place] Urine Protein Urine Glucose (UA) Urine Ketones Urine Blood Urine Nitrite Ur Leukocyte Esterase Urine RBC Urine WBC Ur Squamous Epith Cells Urine Bacteria Hyaline Casts Influenza Type A (PCR) NEGATIVE Influenza Type B (PCR) NEGATIVE RSV RNA Qual (PCR) NEGATIVE SARS-CoV-2 RNA (RT-PCR) NEGATIVE 05/17/25 05/18/25 15:56 04:19 MCV 85.4 MCH 29.0 MCHC 33.9 RDW 13.7 Plt Count 195 MPV 9.8 Immature Gran % (Auto) Neut % (Auto) Lymph % (Auto) [place] % (Auto) Eos % (Auto) Baso % (Auto) Lymph # (Auto) [place] # (Auto) Eos # (Auto) Baso # (Auto) Abs Immat Gran (auto) Absolute Neuts (auto) Absolute Nucleated RBC 0.000 Nucleated RBC % (auto) 0.0 PT 31.6 H D INR 2.8 H Anion Gap 13 Estim Creat Clear Calc 92.1 Estimated GFR > 60 Random Glucose 113 Lactic Acid Lactic Acid F/U @ 2Hr Calcium 7.9 L Magnesium Total Bilirubin Direct Bilirubin AST ALT Alkaline Phosphatase C-Reactive Protein B-Natriuretic Peptide Total Protein Albumin Lipase Procalcitonin Urine Color Yellow Urine Appearance Clear Urine pH 6.5 Ur Specific [place] 1.015 Urine Protein Trace Urine Glucose (UA) Negative Urine Ketones 15 Urine Blood Large (3+) H Urine Nitrite Negative Ur Leukocyte Esterase Trace H Urine RBC >20 H Urine WBC 0-5 Ur Squamous Epith Cells 0-2 Urine Bacteria None Seen Hyaline Casts 0-2 Influenza Type A (PCR) Influenza Type B (PCR) RSV RNA Qual (PCR) SARS-CoV-2 RNA (RT-PCR) Assessment and Plan (1) Fecal impaction: Status: Acute Plan 74M PMH parkinsons with lewy body dementia, chronic afib on warfarin, history of provoked DVT, BPH, presented with AMS Severe sepsis and acute metabolic encephalopathy due to suspected urinary tract infection with multidrug resistant organism due to urinary retention Mason catheter placed, Urology eval, empiric meropenem and follow up cultures Avoid Haldol if delirious, can use atypical antipsychotics Chronic AFib verapamil, warfarin Parkinson's with Lewy body dementia Sinemet DVT prophylaxis-warfarin DNR/DNI reason for continued hospitalization:still not at baseline mental status, awaiting cultures Quality Stroke Does the patient have a stroke diagnosis?: No VTE Prior VTE?: No VTE Risk Level:: Medical - moderate - high VTE Device Contraindication: Treatment Not Indicated VTE Drug Contraindication: N/A - Med Ordered
[2025-05-18] MEDS: dilTIAZem HCL CD 180 MG CAP.ER.24H PO (10:55)
--- NOTE | 2025-05-18 11:12 | PC.NURSE ---
Pt A&O X4 for me this shift. Frequently repositioned for comfort which has been his chief complaints (the bed is uncomfortable). Pt with F/C draining good amounts clr sreekanth urine. Tolerating PO well- feeds self. Pt in SR-ST low 100's other VSS. NAD
--- NOTE | 2025-05-18 12:51 | MHC.CM.PN ---
CM met with Patient and his Daughter at bedside and addressed IMM with them. Patient lives in a house with his /HCP and he uses a cane to assist with mobility. Family is working with [facility] toward securing services in the home. Returning home is the goal and CM has initiated and will follow for dc planning.PCP is Dr.Patrick Jackson and Daughter will transport at time of dc.
[2025-05-18] MEDS: OLANZapine 10 MG VIAL 2.5 MG IM (15:11)
--- NOTE | 2025-05-18 17:18 | PM.UROCN ---
History of Present Illness Consult details Consult date: 05/18/25 Narrative: CC: Urinary retention in setting of void body dementia 74-year-old male Relevant history lower body dementia with known BPH Presents with suspected UTI having completed course of fosfomycin and Bactrim Found to have SIRS response Urinary retention in emergency room with placement of Mason catheter for 1000 cc UA with RBC, no bacteria but cloudy sediment WBC 8.0, creatinine 0.7 Urine culture pending Convert tamsulosin to doxazosin 8 mg Mason catheter remain 4 weeks Voiding trial outpatient urology Review of Systems Constitutional: Constitutional: Reports as per HPI and Reports no additional constitutional complaints Cardiovascular: Cardiovascular: Reports as per HPI and Reports no additional cardiovascular complaints Respiratory: Respiratory: Reports as per HPI and Reports no additional respiratory complaints Gastrointestinal: Gastrointestinal: Reports as per HPI and Reports no additional gastrointestinal complaints Genitourinary: Genitourinary: Reports as per HPI Musculoskeletal: Musculoskeletal: Reports no additional musculoskeletal complaints and Reports as per HPI Neurologic: Reports system reviewed and no additional complaints, except as documented and Reports as per HPI PMFSH Past Medical History Medical History UTI (urinary tract infection) Parkinsons Afib Family History Family History Father Heart disease Mother No problems noted. Surgical History Surgical History History of total knee replacement (TKR) Social History Social History Household Members: Spouse Housing: House Alcohol intake: current Alcohol intake frequency: 3 or more drinks per day Alcohol type: beer and hard liquor Patient Tobacco Use Status: Tobacco use Unknown Tobacco use type: Cigar and Pipe Advance Directives Date on File: 05/18/25 service: Yes Meds Allergies Allergy/AdvReac Type Severity Reaction Status Date / Time metoprolol Allergy Unknown lip swollen Verified 05/17/25 10:23 carvedilol Allergy facial Verified 05/17/25 10:23 swelling Active Medications: Current Medications Acetaminophen (Acetaminophen 325 Mg Tablet) 650 mg PO Q6H PRN PRN Reason: Pain, Mild 1-3,fever,headache Alprazolam (Alprazolam 0.5 Mg Tablet) 0.5 mg PO BEDTIME PRN PRN Reason: Anxiety Last Admin: 05/17/25 23:12 Dose: 0.5 mg Calcium Carbonate (Calcium Carbonate 750 Mg Tab.Chew) 750 mg PO Q4H PRN PRN Reason: Heartburn Carbidopa/Levodopa (Carbidopa/Levodopa Cr 25/100 Tablet.Er) 1 tab PO BEDTIME RYAN Last Admin: 05/17/25 20:45 Dose: 1 tab Carbidopa/Levodopa (Carbidopa/Levodopa Cr 50/200 Tablet.Er) 1 tab PO BID@0730,1630 RYAN Last Admin: 05/18/25 16:35 Dose: 1 tab Diltiazem HCl (Diltiazem Hcl Cd 180 Mg Cap.Er.24h) 180 mg PO DAILY [facility]; Protocol Last Admin: 05/18/25 10:55 Dose: 180 mg Docusate Sodium (Docusate Sodium 100 Mg Capsule) 100 mg PO DAILY [facility] Last Admin: 05/18/25 08:44 Dose: 100 mg Gabapentin (Gabapentin 100 Mg Capsule) 100 mg PO BEDTIME RYAN Last Admin: 05/17/25 20:45 Dose: 100 mg Lactated Ringer's (Lr) 1,000 mls @ 80 mls/hr IVCONT .[id number] [facility] Last Admin: 05/18/25 16:32 Dose: 80 mls/hr Magnesium Hydroxide (Milk Of Magnesia 30 Ml Oral.Susp) 30 ml PO DAILY PRN PRN Reason: Constipation Melatonin (Melatonin 3 Mg Tablet) 6 mg PO BEDTIME PRN PRN Reason: Insomnia Last Admin: 05/17/25 23:12 Dose: 6 mg Meropenem (Meropenem 1 Gm Vial) 1 gm IVPUSH Q8H [facility] Last Admin: 05/18/25 17:17 Dose: 1 gm Modafinil (Modafinil 100 Mg Tablet) 100 mg PO DAILY [facility] Last Admin: 05/18/25 08:44 Dose: 100 mg Olanzapine (Olanzapine 10 Mg Vial) 2.5 mg IM DAILY PRN PRN Reason: agitation Last Admin: 05/18/25 15:11 Dose: 2.5 mg Psyllium Hydrophilic Mucilloid (Psyllium Seed 3.7 Gm Packet) 3.7 gm PO DAILY [facility] Last Admin: 05/18/25 10:57 Dose: Not Given Sodium Chloride (0.9 % Sodium Chloride Flush 3 Ml Syringe) 3 ml IVFLUSH QSHIFT [facility] Last Admin: 05/18/25 15:23 Dose: Not Given Tamsulosin HCl (Tamsulosin Hcl 0.4 Mg Capsule) 0.4 mg PO DAILY@1700 [facility] Trazodone HCl (Trazodone Hcl 50 Mg Tablet) 50 mg PO BEDTIME [facility] Last Admin: 05/17/25 20:45 Dose: 50 mg Warfarin Sodium (Warfarin Sodium 2.5 Mg Tablet) 2.5 mg PO Fr@1800 [facility] Warfarin Sodium (Warfarin Sodium 5 Mg Tablet) 5 mg PO SuMoTuWeThSa@1800 [facility] Last Admin: 05/17/25 20:45 Dose: 5 mg Home Medications ?Medication ?Instructions ?Recorded ?Confirmed ?Last Taken ?Type alprazolam 0.5 mg tablet 0.5 mg PO BEDTIME PRN Anxiety 11/23/20 05/17/25 Unknown History tamsulosin 0.4 mg capsule 0.4 mg PO DAILY@1700 11/23/20 05/17/25 05/16/25 History carbidopa ER 25 mg-levodopa 100 mg 1 tab PO BEDTIME 05/17/25 05/17/25 05/16/25 History tablet,extended release carbidopa ER 50 mg-levodopa 200 mg 1 tab PO BID@0730,1630 05/17/25 05/17/25 05/17/25 History tablet,extended release docusate sodium 100 mg capsule 100 mg PO DAILY 05/17/25 05/17/25 05/17/25 History gabapentin 100 mg capsule 100 mg PO BEDTIME 05/17/25 05/17/25 05/16/25 History modafinil 100 mg tablet 100 mg PO DAILY 05/17/25 05/17/25 05/17/25 History trazodone 50 mg tablet 50 mg PO BEDTIME 05/17/25 05/17/25 05/16/25 History warfarin 5 mg tablet 2.5 mg PO FR@1700 05/17/25 05/17/25 05/14/25 History warfarin 5 mg tablet 5 mg PO SUMOTUWETHSA@1700 05/17/25 05/17/25 05/16/25 History Physical Exam Vital Signs: Vital Signs: Last Vital Signs Temp 97.6 F 05/18/25 15:18 Pulse 93 05/18/25 15:18 Resp 18 05/18/25 15:18 BP 138/80 05/18/25 15:18 Pulse Ox 98 05/18/25 15:18 O2 Del Method Room Air 05/18/25 15:18 BMI result Body Mass Index 24.8 Const: General: cooperative, healthy appearing, comfortable and no acute distress Orientation/consciousness: patient oriented x3 HEENT: Face and sinus: Yes normal facial exam Mouth: moist mucous membranes Neck: Neck: Yes normal visual inspection, Yes full ROM and Yes trachea midline Chest: Chest palpation & inspection: normal inspection of the chest Resp: Effort & Inspection: normal respiratory effort, able to speak in complete sentences and no respiratory distress GI: Inspection: Yes normal to inspection Back/Spine/Pelvis: Cervical Spine: normal cervical lordosis Thoracic/Lumbar Spine: thoracic and lumbar spine normal to inspection Skin: General skin exam: no rashes or lesions noted Neuro: General: patient oriented x3, tone normal and moves all extremities Extrem: General: Yes normal to inspection and Yes capillary refill normal Results Labs 05/18/25 04:19 05/18/25 04:19 Labs: Abnormal lab results 05/18/25 Range/Units 04:19 PT 31.6 H D (10.9-12.4) SEC INR 2.8 H (0.9-1.1) Calcium 7.9 L (8.4-10.2) mg/dL Short CBC 05/18/25 Range/Units 04:19 WBC 8.0 (4.8-10.8) X10*3/uL Hgb 14.9 (14.0-18.0) g/dl Hct 43.9 (42.0-52.0) % Plt Count 195 (160-400) X10*3/uL BMP 05/18/25 04:19 Sodium 141 Potassium 3.8 Chloride 108 Carbon Dioxide 24 BUN 13 Creatinine 0.76 Calcium 7.9 L Urine 05/17/25 Range/Units 15:56 Urine Color Yellow Urine Appearance Clear Urine pH 6.5 (5.0-9.0) Ur Specific Thurman 1.015 (1.005-1.025) Urine Protein Trace (Neg-Trace) mg/dL Urine Glucose (UA) Negative (Negative) mg/dL All other labs normal. Assessment and Plan (1) Acute urinary retention: Status: Acute Plan Switch from terazosin to doxazosin 8 mg Mason catheter to remain 4 weeks If has hand dexterity may have teaching from nursing to use blue catheter plug to cycle bladder every 3-4 hours Procedures Date of Service Date of Service: 05/18/25
[2025-05-18] MEDS: OLANZapine 10 MG VIAL IM (21:02)
[2025-05-18] MEDS: Carbidopa/Levodopa CR 25/100 TABLET.ER 1 TAB PO (23:34)
[2025-05-19 03:54] VITALS: PULSE 107; RESP 20; TEMP 36.7
[2025-05-19] MEDS: Lactated Ringers 1,000 ML 80 ML IVCONT (05:40)
[2025-05-19 06:33] LABS: Hematocrit 42.3 % (42.0-52.0); Hemoglobin 14.3 g/dl (14.0-18.0); Mean Corpuscular HGB Conc 33.8 g/dl (31.0-36.0); Mean Corpuscular Hemoglobin 28.8 pg (27.0-33.0); Mean Corpuscular Volume 85.3 fL (80.0-98.0); NRBC Abs Auto 0.000 X10*3/uL (0.0-0.012); NRBC Pct Auto 0.0 /100WBC (0.0-0.2); Platelet Count 172 X10*3/uL (160-400); Red Blood Count 4.96 X10*6/uL (4.60-5.80); White Blood Count 6.8 X10*3/uL (4.8-10.8)
[2025-05-19 06:42] LABS: INTERNATIONAL NORM RATIO 2.4 (0.9-1.1); Prothrombin Time 27.9 SEC (10.9-12.4)
[2025-05-19] MEDS: Carbidopa/Levodopa CR 50/200 TABLET.ER 1 TAB PO ×2 (06:42→16:27)
[2025-05-19 06:44] LABS: Anion Gap 8 (12-20); Blood Urea Nitrogen 7 mg/dL (9-16); Calcium 8.0 mg/dL (8.4-10.2); Carbon Dioxide 28 mmol/L (22-29); Chloride 107 mmol/L (96-108); Creatinine Clr Calc Pharmacy 106.1; Estimated Glomerular Filt Rate > 60; Potassium 3.4 mmol/L (3.3-5.1); Sodium 140 mmol/L (135-145)
[2025-05-19 08:00] VITALS: BP 119/67; PULSE 81; RESP 18; TEMP 36.1; O2SAT 96
--- NOTE | 2025-05-19 10:58 | HO.PM.IMPN ---
Subjective Subjective Date of Service: 05/19/25 Interval History: more awake but still lethargic Physical Exam Vital Signs: Vital Signs: Last Vital Signs Temp 97.0 F 05/19/25 08:00 Pulse 81 05/19/25 08:00 Resp 18 05/19/25 08:00 BP 119/67 05/19/25 08:00 Pulse Ox 96 05/19/25 08:00 O2 Del Method Room Air 05/19/25 08:00 BMI result Body Mass Index 24.8 Const: General: cooperative, healthy appearing, comfortable and no acute distress Orientation/consciousness: patient oriented x3 HEENT: Face and sinus: Yes normal facial exam Mouth: moist mucous membranes Neck: Neck: Yes normal visual inspection, Yes full ROM and Yes trachea midline Chest: Chest palpation & inspection: normal inspection of the chest Resp: Effort & Inspection: normal respiratory effort, able to speak in complete sentences and no respiratory distress GI: Inspection: Yes normal to inspection Back/Spine/Pelvis: Cervical Spine: normal cervical lordosis Thoracic/Lumbar Spine: thoracic and lumbar spine normal to inspection Skin: General skin exam: no rashes or lesions noted Neuro: General: patient oriented x3, tone normal and moves all extremities Extrem: General: Yes normal to inspection and Yes capillary refill normal Objective Data Active Medications Acetaminophen (Acetaminophen 325 Mg Tablet) 650 mg PO Q6H PRN PRN Reason: Pain, Mild 1-3,fever,headache Alprazolam (Alprazolam 0.5 Mg Tablet) 0.5 mg PO BEDTIME PRN PRN Reason: Anxiety Last Admin: 05/17/25 23:12 Dose: 0.5 mg Documented By: MEGAN Calcium Carbonate (Calcium Carbonate 750 Mg Tab.Chew) 750 mg PO Q4H PRN PRN Reason: Heartburn Carbidopa/Levodopa (Carbidopa/Levodopa Cr 25/100 Tablet.Er) 1 tab PO BEDTIME [facility] Last Admin: 05/18/25 23:34 Dose: 1 tab Documented By: JUAN Carbidopa/Levodopa (Carbidopa/Levodopa Cr 50/200 Tablet.Er) 1 tab PO BID@0730,1630 [facility] Last Admin: 05/19/25 06:42 Dose: 1 tab Documented By: JUAN Diltiazem HCl (Diltiazem Hcl Cd 180 Mg Cap.Er.24h) 180 mg PO DAILY [facility]; Protocol Last Admin: 05/18/25 10:55 Dose: 180 mg Documented By: ANYI Docusate Sodium (Docusate Sodium 100 Mg Capsule) 100 mg PO DAILY [facility] Last Admin: 05/18/25 08:44 Dose: 100 mg Documented By: ANYI Doxazosin Mesylate (Doxazosin Mesylate 2 Mg Tablet) 8 mg PO BEDTIME [facility]; Protocol Last Admin: 05/18/25 23:34 Dose: 8 mg Documented By: JUAN Gabapentin (Gabapentin 100 Mg Capsule) 100 mg PO BEDTIME RYAN Last Admin: 05/18/25 23:34 Dose: 100 mg Documented By: JUAN Lactated Ringer's (Lr) 1,000 mls @ 80 mls/hr IVCONT .[id number] [facility] Last Admin: 05/19/25 05:40 Dose: 80 mls/hr Documented By: JUAN Magnesium Hydroxide (Milk Of Magnesia 30 Ml Oral.Susp) 30 ml PO DAILY PRN PRN Reason: Constipation Melatonin (Melatonin 3 Mg Tablet) 6 mg PO BEDTIME PRN PRN Reason: Insomnia Last Admin: 05/17/25 23:12 Dose: 6 mg Documented By: MEGAN Meropenem (Meropenem 1 Gm Vial) 1 gm IVPUSH Q8H [facility] Last Admin: 05/19/25 00:27 Dose: 1 gm Documented By: JUAN Modafinil (Modafinil 100 Mg Tablet) 100 mg PO DAILY [facility] Last Admin: 05/18/25 08:44 Dose: 100 mg Documented By: ANYI Olanzapine (Olanzapine 10 Mg Vial) 2.5 mg IM DAILY PRN PRN Reason: agitation Last Admin: 05/18/25 15:11 Dose: 2.5 mg Documented By: SOMMER Psyllium Hydrophilic Mucilloid (Psyllium Seed 3.7 Gm Packet) 3.7 gm PO DAILY [facility] Last Admin: 05/18/25 10:57 Dose: Not Given Documented By: ANYI Non-Admin Reason: Patient Refused Sodium Chloride (0.9 % Sodium Chloride Flush 3 Ml Syringe) 3 ml IVFLUSH QSHIFT [facility] Last Admin: 05/18/25 23:55 Dose: Not Given Documented By: JUAN Non-Admin Reason: IV Running Trazodone HCl (Trazodone Hcl 50 Mg Tablet) 50 mg PO BEDTIME [facility]YAN Last Admin: 05/19/25 00:27 Dose: 50 mg Documented By: JUAN Warfarin Sodium (Warfarin Sodium 2.5 Mg Tablet) 2.5 mg PO Fr@1800 [facility] Warfarin Sodium (Warfarin Sodium 5 Mg Tablet) 5 mg PO SuMoTuWeThSa@1800 [facility] Last Admin: 05/18/25 17:30 Dose: 5 mg Documented By: SOMMER Labs 05/19/25 06:26 05/19/25 06:26 Labs: Laboratory Results - last 24 hr 05/19/25 06:26 MCV 85.3 MCH 28.8 MCHC 33.8 RDW 13.7 Plt Count 172 MPV 9.1 L Absolute Nucleated RBC 0.000 Nucleated RBC % (auto) 0.0 PT 27.9 H INR 2.4 H Anion Gap 8 L Estim Creat Clear Calc 106.1 Estimated GFR > 60 Random Glucose 99 Calcium 8.0 L Microbiology Microbiology Results: Microbiology 05/17/25 10:57 Blood Culture - Preliminary Blood - Venous No growth after 24 hours. 05/17/25 10:43 Blood Culture - Preliminary Blood - Venous No growth after 24 hours. Assessment and Plan (1) Fecal impaction: Status: Acute Plan 74M PMH parkinsons with lewy body dementia, chronic afib on warfarin, history of provoked DVT, BPH, presented with AMS Severe sepsis and acute metabolic encephalopathy due to suspected urinary tract infection with multidrug resistant organism due to urinary retention Mason catheter placed, Urology eval, empiric meropenem and follow up - so far negative cultures Avoid Haldol if delirious, can use atypical antipsychotics Chronic AFib verapamil, warfarin Parkinson's with Lewy body dementia Sinemet DVT prophylaxis-warfarin DNR/DNI reason for continued hospitalization:still not at baseline mental status, awaiting cultures Quality Stroke Does the patient have a stroke diagnosis?: No VTE Prior VTE?: No VTE Risk Level:: Medical - moderate - high VTE Device Contraindication: Treatment Not Indicated VTE Drug Contraindication: N/A - Med Ordered
[2025-05-19] MEDS: dilTIAZem HCL CD 180 MG CAP.ER.24H PO (11:18)
[2025-05-19] MEDS: 0.9 % Sodium Chloride Flush 3 ML SYRINGE IVFLUSH ×2 (11:18→16:26)
[2025-05-19] MEDS: Psyllium seed 3.7 GM PACKET PO (11:23)
[2025-05-19 11:45] VITALS: BP 125/70; PULSE 77; RESP 18; TEMP 36.4; O2SAT 99
[2025-05-19 15:46] VITALS: BP 104/60; PULSE 90; RESP 16; TEMP 36.3; O2SAT 96
--- NOTE | 2025-05-19 16:12 | MHC.CM.PN ---
Per rounds, pt lethargic, not at cognitive baseline, still requiring acute care. CM to follow for DC needs.
--- NOTE | 2025-05-19 16:20 | MHC.CM.PN ---
CM met with pt and family to discuss DCP, PT rec. [facility]. Pt and his said he would rather have VNA at home. Pt has been to [facility] before and is familiar with that and with VNA services. He has used [facility], and would like them again, referral submitted.
[2025-05-19 19:39] VITALS: BP 120/58; PULSE 79; RESP 16; TEMP 36.6; O2SAT 97
[2025-05-19] MEDS: Carbidopa/Levodopa CR 25/100 TABLET.ER 1 TAB PO (19:50)
[2025-05-19] MEDS: OLANZapine 10 MG VIAL 2.5 MG IM (20:37)
[2025-05-20] VITALS (7 sets, daily range): BP systolic 88–126; BP diastolic 53–77; PULSE 51–98; RESP 17–18; TEMP 36.1–36.8; O2SAT 94–98
[2025-05-20] MEDS: 0.9 % Sodium Chloride Flush 3 ML SYRINGE IVFLUSH ×4 (00:33→22:12)
[2025-05-20 07:13] LABS: Hematocrit 44.9 % (42.0-52.0); Hemoglobin 15.0 g/dl (14.0-18.0); Mean Corpuscular HGB Conc 33.4 g/dl (31.0-36.0); Mean Corpuscular Hemoglobin 28.8 pg (27.0-33.0); Mean Corpuscular Volume 86.2 fL (80.0-98.0); NRBC Abs Auto 0.000 X10*3/uL (0.0-0.012); NRBC Pct Auto 0.0 /100WBC (0.0-0.2); Platelet Count 174 X10*3/uL (160-400); Red Blood Count 5.21 X10*6/uL (4.60-5.80); White Blood Count 5.1 X10*3/uL (4.8-10.8)
[2025-05-20 07:19] LABS: INTERNATIONAL NORM RATIO 2.5 (0.9-1.1); Prothrombin Time 28.6 SEC (10.9-12.4)
[2025-05-20 07:30] LABS: Anion Gap 8 (12-20); Blood Urea Nitrogen 10 mg/dL (9-16); Calcium 7.8 mg/dL (8.4-10.2); Carbon Dioxide 28 mmol/L (22-29); Chloride 107 mmol/L (96-108); Creatinine Clr Calc Pharmacy 107.7; Estimated Glomerular Filt Rate > 60; Potassium 3.4 mmol/L (3.3-5.1); Sodium 140 mmol/L (135-145)
[2025-05-20] MEDS: Carbidopa/Levodopa CR 50/200 TABLET.ER 1 TAB PO ×2 (10:45→16:21)
[2025-05-20] MEDS: dilTIAZem HCL CD 180 MG CAP.ER.24H PO (10:45)
[2025-05-20] MEDS: Psyllium seed 3.7 GM PACKET PO (10:46)
--- NOTE | 2025-05-20 11:20 | P.PNIM_ITS ---
Subjective Subjective Date of Service: 05/20/25 Interval History: more awake but still lethargic Physical Exam 2 Vital Signs: Vital Signs: Last Vital Signs Temp 97.1 F 05/20/25 07:59 Pulse 64 05/20/25 07:59 Resp 17 05/20/25 07:59 BP 120/77 05/20/25 07:59 Pulse Ox 98 05/20/25 07:59 O2 Del Method Room Air 05/20/25 07:59 BMI result Body Mass Index 24.8 Const: General: cooperative, healthy appearing, comfortable and no acute distress Orientation/consciousness: patient oriented x3 HEENT: Face and sinus: Yes normal facial exam Mouth: moist mucous membranes Neck: Neck: Yes normal visual inspection, Yes full ROM and Yes trachea midline Chest: Chest palpation & inspection: normal inspection of the chest Resp: Effort & Inspection: normal respiratory effort, able to speak in complete sentences and no respiratory distress GI: Inspection: Yes normal to inspection Back/Spine/Pelvis: Cervical Spine: normal cervical lordosis Thoracic/Lumbar Spine: thoracic and lumbar spine normal to inspection Skin: General skin exam: no rashes or lesions noted Neuro: General: patient oriented x3, tone normal and moves all extremities Extrem: General: Yes normal to inspection and Yes capillary refill normal Objective Data Active Medications Acetaminophen (Acetaminophen 325 Mg Tablet) 650 mg PO Q6H PRN PRN Reason: Pain, Mild 1-3,fever,headache Last Admin: 05/19/25 19:49 Dose: 650 mg Documented By: WENDIE Alprazolam (Alprazolam 0.5 Mg Tablet) 0.5 mg PO BEDTIME PRN PRN Reason: Anxiety Last Admin: 05/19/25 19:50 Dose: 0.5 mg Documented By: WENDIE Calcium Carbonate (Calcium Carbonate 750 Mg Tab.Chew) 750 mg PO Q4H PRN PRN Reason: Heartburn Carbidopa/Levodopa (Carbidopa/Levodopa Cr 25/100 Tablet.Er) 1 tab PO BEDTIME [facility] Last Admin: 05/19/25 19:50 Dose: 1 tab Documented By: WENDIE Carbidopa/Levodopa (Carbidopa/Levodopa Cr 50/200 Tablet.Er) 1 tab PO BID@0730,1630 [facility] Last Admin: 05/20/25 10:45 Dose: 1 tab Documented By: DOBROB Diltiazem HCl (Diltiazem Hcl Cd 180 Mg Cap.Er.24h) 180 mg PO DAILY [facility]; Protocol Last Admin: 05/20/25 10:45 Dose: 180 mg Documented By: ASHLEY Docusate Sodium (Docusate Sodium 100 Mg Capsule) 100 mg PO DAILY [facility] Last Admin: 05/20/25 10:45 Dose: 100 mg Documented By: ASHLEY Doxazosin Mesylate (Doxazosin Mesylate 2 Mg Tablet) 8 mg PO BEDTIME [facility]; Protocol Last Admin: 05/19/25 19:49 Dose: 8 mg Documented By: WENDIE Gabapentin (Gabapentin 100 Mg Capsule) 100 mg PO BEDTIME [facility] Last Admin: 05/19/25 19:49 Dose: 100 mg Documented By: WENDIE Magnesium Hydroxide (Milk Of Magnesia 30 Ml Oral.Susp) 30 ml PO DAILY PRN PRN Reason: Constipation Melatonin (Melatonin 3 Mg Tablet) 6 mg PO BEDTIME PRN PRN Reason: Insomnia Last Admin: 05/19/25 19:50 Dose: 6 mg Documented By: WENIDE Meropenem (Meropenem 1 Gm Vial) 1 gm IVPUSH Q8H [facility] Last Admin: 05/20/25 10:44 Dose: 1 gm Documented By: ASHLEY Modafinil (Modafinil 100 Mg Tablet) 100 mg PO DAILY [facility] Last Admin: 05/20/25 10:45 Dose: 100 mg Documented By: ASHLEY Olanzapine (Olanzapine 10 Mg Vial) 2.5 mg IM DAILY PRN PRN Reason: agitation Last Admin: 05/19/25 20:37 Dose: 2.5 mg Documented By: WENDIE Psyllium Hydrophilic Mucilloid (Psyllium Seed 3.7 Gm Packet) 3.7 gm PO DAILY [facility] Last Admin: 05/20/25 10:46 Dose: 3.7 gm Documented By: ASHLEY Sodium Chloride (0.9 % Sodium Chloride Flush 3 Ml Syringe) 3 ml IVFLUSH QSHIFT [facility] Last Admin: 05/20/25 10:45 Dose: 3 ml Documented By: ASHLEY Trazodone HCl (Trazodone Hcl 50 Mg Tablet) 50 mg PO BEDTIME [facility] Last Admin: 05/19/25 19:49 Dose: 50 mg Documented By: WENDIE Warfarin Sodium (Warfarin Sodium 2.5 Mg Tablet) 2.5 mg PO Fr@1800 [facility] Warfarin Sodium (Warfarin Sodium 5 Mg Tablet) 5 mg PO SuMoTuWeThSa@1800 [facility] Last Admin: 05/19/25 17:58 Dose: 5 mg Documented By: RIP Labs 05/20/25 07:03 05/20/25 07:03 Labs: Laboratory Results - last 24 hr 05/20/25 07:03 MCV 86.2 MCH 28.8 MCHC 33.4 RDW 13.6 Plt Count 174 MPV 9.5 Absolute Nucleated RBC 0.000 Nucleated RBC % (auto) 0.0 PT 28.6 H INR 2.5 H Anion Gap 8 L Estim Creat Clear Calc 107.7 Estimated GFR > 60 Random Glucose 99 Calcium 7.8 L Microbiology Microbiology Results: Microbiology 05/17/25 10:57 Blood Culture - Preliminary Blood - Venous No growth after 48 hours. 05/17/25 10:43 Blood Culture - Preliminary Blood - Venous No growth after 48 hours. Assessment and Plan (1) Fecal impaction: Status: Acute Plan 74M PMH parkinsons with lewy body dementia, chronic afib on warfarin, history of provoked DVT, BPH, presented with AMS Severe sepsis and acute metabolic encephalopathy due to suspected urinary tract infection with multidrug resistant organism due to urinary retention Hemphill catheter placed, Urology switched from terazosin to doxazosin, keeping hemphill for 4 weeks, intermittent plugging, s/p 4 days empiric meropenem cultures negative, will dc abx Avoid Haldol if delirious, can use atypical antipsychotics Chronic AFib verapamil, warfarin Parkinson's with Lewy body dementia Sinemet DVT prophylaxis-warfarin DNR/DNI reason for continued hospitalization:still not at baseline mental status Quality Stroke Does the patient have a stroke diagnosis?: No VTE Prior VTE?: No VTE Risk Level:: Medical - moderate - high VTE Device Contraindication: Treatment Not Indicated VTE Drug Contraindication: N/A - Med Ordered
--- NOTE | 2025-05-20 11:45 | PC.NURSE ---
Patient's daughter called asking for update, phone call returned, daughter updated on patient's condition, daughter requested to have case management informed that family would like to discuss [facility] options for discharge. CM notified
[2025-05-20] MEDS: Lactated Ringers 500 ML 999 ML IV (19:52)
[2025-05-20 20:26] LABS: MANUAL DIFF FLAG NO
[2025-05-20 20:29] LABS: Hematocrit 44.1 % (42.0-52.0); Hemoglobin 14.5 g/dl (14.0-18.0); Imm Gran Abs Auto 0.02 X10*3/uL (0.00-0.03); Imm Gran Pct Auto 0.3 % (0.0-0.4); Lymphocytes Absolute Auto 1.5 X10*3/uL (1.2-4.9); Mean Corpuscular HGB Conc 32.9 g/dl (31.0-36.0); Mean Corpuscular Hemoglobin 28.7 pg (27.0-33.0); Mean Corpuscular Volume 87.3 fL (80.0-98.0); NRBC Abs Auto 0.000 X10*3/uL (0.0-0.012); NRBC Pct Auto 0.0 /100WBC (0.0-0.2); Platelet Count 192 X10*3/uL (160-400); Red Blood Count 5.05 X10*6/uL (4.60-5.80); White Blood Count 7.5 X10*3/uL (4.8-10.8)
[2025-05-20] MEDS: Carbidopa/Levodopa CR 25/100 TABLET.ER 1 TAB PO (22:12)
[2025-05-21] VITALS (8 sets, daily range): BP systolic 86–125; BP diastolic 51–77; PULSE 73–87; RESP 17–18; TEMP 36.1–37.1; O2SAT 96–98
[2025-05-21] MEDS: Carbidopa/Levodopa CR 50/200 TABLET.ER 1 TAB PO ×2 (06:26→15:50)
[2025-05-21 07:52] LABS: Hematocrit 43.1 % (42.0-52.0); Hemoglobin 14.6 g/dl (14.0-18.0); Mean Corpuscular HGB Conc 33.9 g/dl (31.0-36.0); Mean Corpuscular Hemoglobin 29.4 pg (27.0-33.0); Mean Corpuscular Volume 86.7 fL (80.0-98.0); NRBC Abs Auto 0.000 X10*3/uL (0.0-0.012); NRBC Pct Auto 0.0 /100WBC (0.0-0.2); Platelet Count 178 X10*3/uL (160-400); Red Blood Count 4.97 X10*6/uL (4.60-5.80); White Blood Count 6.0 X10*3/uL (4.8-10.8)
[2025-05-21 08:03] LABS: INTERNATIONAL NORM RATIO 2.8 (0.9-1.1); Prothrombin Time 32.5 SEC (10.9-12.4)
[2025-05-21 08:04] LABS: Anion Gap 10 (12-20); Blood Urea Nitrogen 15 mg/dL (9-16); Calcium 8.0 mg/dL (8.4-10.2); Carbon Dioxide 27 mmol/L (22-29); Chloride 107 mmol/L (96-108); Creatinine Clr Calc Pharmacy 94.6; Estimated Glomerular Filt Rate > 60; Potassium 3.7 mmol/L (3.3-5.1); Sodium 140 mmol/L (135-145)
--- NOTE | 2025-05-21 10:26 | HO.PM.IMPN ---
Subjective Subjective Date of Service: 05/21/25 Interval History: more awake but still lethargic Physical Exam Vital Signs: Vital Signs: Last Vital Signs Temp 97.1 F 05/21/25 08:00 Pulse 87 05/21/25 08:00 Resp 17 05/21/25 08:00 BP 106/63 05/21/25 08:00 Pulse Ox 96 05/21/25 08:00 O2 Del Method Room Air 05/21/25 08:00 BMI result Body Mass Index 24.8 Const: General: cooperative, healthy appearing, comfortable and no acute distress Orientation/consciousness: patient oriented x3 HEENT: Face and sinus: Yes normal facial exam Mouth: moist mucous membranes Neck: Neck: Yes normal visual inspection, Yes full ROM and Yes trachea midline Chest: Chest palpation & inspection: normal inspection of the chest Resp: Effort & Inspection: normal respiratory effort, able to speak in complete sentences and no respiratory distress GI: Inspection: Yes normal to inspection Back/Spine/Pelvis: Cervical Spine: normal cervical lordosis Thoracic/Lumbar Spine: thoracic and lumbar spine normal to inspection Skin: General skin exam: no rashes or lesions noted Neuro: General: patient oriented x3, tone normal and moves all extremities Extrem: General: Yes normal to inspection and Yes capillary refill normal Objective Data Active Medications Acetaminophen (Acetaminophen 325 Mg Tablet) 650 mg PO Q6H PRN PRN Reason: Pain, Mild 1-3,fever,headache Last Admin: 05/20/25 13:16 Dose: 650 mg Documented By: ASHLEY Alprazolam (Alprazolam 0.5 Mg Tablet) 0.5 mg PO BEDTIME PRN PRN Reason: Anxiety Last Admin: 05/21/25 00:09 Dose: 0.5 mg Documented By: JUAN Calcium Carbonate (Calcium Carbonate 750 Mg Tab.Chew) 750 mg PO Q4H PRN PRN Reason: Heartburn Carbidopa/Levodopa (Carbidopa/Levodopa Cr 25/100 Tablet.Er) 1 tab PO BEDTIME [facility] Last Admin: 05/20/25 22:12 Dose: 1 tab Documented By: JUAN Carbidopa/Levodopa (Carbidopa/Levodopa Cr 50/200 Tablet.Er) 1 tab PO BID@0730,1630 [facility] Last Admin: 05/21/25 06:26 Dose: 1 tab Documented By: JUAN Diltiazem HCl (Diltiazem Hcl Cd 180 Mg Cap.Er.24h) 180 mg PO DAILY [facility]; Protocol Last Admin: 05/20/25 10:45 Dose: 180 mg Documented By: ASHLEY Docusate Sodium (Docusate Sodium 100 Mg Capsule) 100 mg PO DAILY [facility] Last Admin: 05/20/25 10:45 Dose: 100 mg Documented By: ASHLEY Doxazosin Mesylate (Doxazosin Mesylate 2 Mg Tablet) 8 mg PO BEDTIME [facility]; Protocol On Hold: 05/20/25 19:40 Last Admin: 05/19/25 19:49 Dose: 8 mg Documented By: WENDIE Gabapentin (Gabapentin 100 Mg Capsule) 100 mg PO BEDTIME [facility] Last Admin: 05/20/25 22:12 Dose: 100 mg Documented By: JUAN Magnesium Hydroxide (Milk Of Magnesia 30 Ml Oral.Susp) 30 ml PO DAILY PRN PRN Reason: Constipation Melatonin (Melatonin 3 Mg Tablet) 6 mg PO BEDTIME PRN PRN Reason: Insomnia Last Admin: 05/20/25 22:12 Dose: 6 mg Documented By: JUAN Modafinil (Modafinil 100 Mg Tablet) 100 mg PO DAILY [facility] Last Admin: 05/20/25 10:45 Dose: 100 mg Documented By: ASHLEY Olanzapine (Olanzapine 10 Mg Vial) 2.5 mg IM DAILY PRN PRN Reason: agitation Last Admin: 05/19/25 20:37 Dose: 2.5 mg Documented By: WENDIE Psyllium Hydrophilic Mucilloid (Psyllium Seed 3.7 Gm Packet) 3.7 gm PO DAILY [facility] Last Admin: 05/20/25 10:46 Dose: 3.7 gm Documented By: ASHLEY Sodium Chloride (0.9 % Sodium Chloride Flush 3 Ml Syringe) 3 ml IVFLUSH QSHIFT [facility] Last Admin: 05/20/25 22:12 Dose: 3 ml Documented By: JUAN Trazodone HCl (Trazodone Hcl 50 Mg Tablet) 50 mg PO BEDTIME [facility] Last Admin: 05/20/25 22:12 Dose: 50 mg Documented By: JUAN Warfarin Sodium (Warfarin Sodium 2.5 Mg Tablet) 2.5 mg PO Fr@1800 [facility] Warfarin Sodium (Warfarin Sodium 5 Mg Tablet) 5 mg PO SuMoTuWeThSa@1800 [facility] Last Admin: 05/20/25 17:53 Dose: 5 mg Documented By: ASHLEY Labs 05/21/25 07:30 05/21/25 07:30 Labs: Laboratory Results - last 24 hr 05/20/25 05/21/25 20:03 07:30 MCV 87.3 86.7 MCH 28.7 29.4 MCHC 32.9 33.9 RDW 13.7 13.7 Plt Count 192 178 MPV 9.4 9.6 Immature Gran % (Auto) 0.3 Neut % (Auto) 65.2 Lymph % (Auto) 19.8 L [place] % (Auto) 11.9 H Eos % (Auto) 2.3 Baso % (Auto) 0.5 Lymph # (Auto) 1.5 [place] # (Auto) 0.9 Eos # (Auto) 0.2 Baso # (Auto) 0.0 Abs Immat Gran (auto) 0.02 Absolute Neuts (auto) 4.9 Absolute Nucleated RBC 0.000 0.000 Nucleated RBC % (auto) 0.0 0.0 PT 32.5 H INR 2.8 H Anion Gap 10 L Estim Creat Clear Calc 94.6 Estimated GFR > 60 Random Glucose 115 Lactic Acid 2.0 Calcium 8.0 L Assessment and Plan (1) Fecal impaction: Status: Acute Plan 74M PMH parkinsons with lewy body dementia, chronic afib on warfarin, history of provoked DVT, BPH, presented with AMS Severe sepsis and acute metabolic encephalopathy due to suspected urinary tract infection with multidrug resistant organism due to urinary retention Hemphill catheter placed, Urology switched from terazosin to doxazosin, keeping hemphill for 4 weeks, intermittent plugging, s/p 4 days empiric meropenem cultures negative, dced abx Avoid Haldol if delirious, can use atypical antipsychotics Chronic AFib verapamil, warfarin Parkinson's with Lewy body dementia Sinemet DVT prophylaxis-warfarin DNR/DNI reason for continued hospitalization:still not at baseline mental status Quality Stroke Does the patient have a stroke diagnosis?: No VTE Prior VTE?: No VTE Risk Level:: Medical - moderate - high VTE Device Contraindication: Treatment Not Indicated VTE Drug Contraindication: N/A - Med Ordered
[2025-05-21] MEDS: dilTIAZem HCL CD 180 MG CAP.ER.24H PO (10:59)
[2025-05-21] MEDS: Psyllium seed 3.7 GM PACKET PO (11:01)
[2025-05-21] MEDS: 0.9 % Sodium Chloride Flush 3 ML SYRINGE IVFLUSH ×3 (11:03→20:15)
[2025-05-21 15:04] LABS: Appearance Urine Turbid; Glucose Urine UA Negative (Negative); PH 6.5 (5.0-9.0); Specific Gravity - Urine 1.025 (1.005-1.025); UMIC TRIGGER UACC YES
[2025-05-21] MEDS: oxyCODONE HCl Immed Release 5 MG TABLET 2.5 MG PO (15:50)
--- NOTE | 2025-05-21 16:04 | MHC.CM.PN ---
Per rounds, the pt. is ready to DC, referrals for STR are out, 2 are following.
[2025-05-21] MEDS: Lactated Ringers 500 ML 999 ML IV (20:15)
[2025-05-21] MEDS: Carbidopa/Levodopa CR 25/100 TABLET.ER 1 TAB PO (20:19)
[2025-05-22] VITALS (8 sets, daily range): BP systolic 105–146; BP diastolic 56–77; PULSE 58–98; RESP 18–20; TEMP 36.2–36.8; O2SAT 95–98
[2025-05-22 07:28] LABS: Hematocrit 44.7 % (42.0-52.0); Hemoglobin 14.7 g/dl (14.0-18.0); Mean Corpuscular HGB Conc 32.9 g/dl (31.0-36.0); Mean Corpuscular Hemoglobin 28.7 pg (27.0-33.0); Mean Corpuscular Volume 87.1 fL (80.0-98.0); NRBC Abs Auto 0.000 X10*3/uL (0.0-0.012); NRBC Pct Auto 0.0 /100WBC (0.0-0.2); Platelet Count 188 X10*3/uL (160-400); Red Blood Count 5.13 X10*6/uL (4.60-5.80); White Blood Count 6.8 X10*3/uL (4.8-10.8)
[2025-05-22 07:34] LABS: INTERNATIONAL NORM RATIO 2.5 (0.9-1.1); Prothrombin Time 28.7 SEC (10.9-12.4)
[2025-05-22 07:43] LABS: Anion Gap 9 (12-20); Blood Urea Nitrogen 17 mg/dL (9-16); Calcium 8.2 mg/dL (8.4-10.2); Carbon Dioxide 30 mmol/L (22-29); Chloride 105 mmol/L (96-108); Creatinine Clr Calc Pharmacy 98.6; Estimated Glomerular Filt Rate > 60; Potassium 4.0 mmol/L (3.3-5.1); Sodium 140 mmol/L (135-145)
[2025-05-22] MEDS: dilTIAZem HCL CD 180 MG CAP.ER.24H PO (08:10)
[2025-05-22] MEDS: Psyllium seed 3.7 GM PACKET PO (08:11)
[2025-05-22] MEDS: Carbidopa/Levodopa CR 50/200 TABLET.ER 1 TAB PO ×2 (08:11→15:52)
[2025-05-22] MEDS: 0.9 % Sodium Chloride Flush 3 ML SYRINGE IVFLUSH ×3 (08:11→20:33)
--- NOTE | 2025-05-22 10:26 | HO.PM.IMPN ---
Subjective Subjective Date of Service: 05/22/25 Interval History: wants to go home Physical Exam Vital Signs: Vital Signs: Last Vital Signs Temp 97.6 F 05/22/25 08:00 Pulse 73 05/22/25 08:10 Resp 20 05/22/25 08:00 BP 146/77 H 05/22/25 08:10 Pulse Ox 96 05/22/25 08:00 O2 Del Method Room Air 05/22/25 08:00 BMI result Body Mass Index 24.8 Const: General: cooperative, healthy appearing, comfortable and no acute distress Orientation/consciousness: patient oriented x3 HEENT: Face and sinus: Yes normal facial exam Mouth: moist mucous membranes Neck: Neck: Yes normal visual inspection, Yes full ROM and Yes trachea midline Chest: Chest palpation & inspection: normal inspection of the chest Resp: Effort & Inspection: normal respiratory effort, able to speak in complete sentences and no respiratory distress GI: Inspection: Yes normal to inspection Back/Spine/Pelvis: Cervical Spine: normal cervical lordosis Thoracic/Lumbar Spine: thoracic and lumbar spine normal to inspection Skin: General skin exam: no rashes or lesions noted Neuro: General: patient oriented x3, tone normal and moves all extremities Extrem: General: Yes normal to inspection and Yes capillary refill normal Objective Data Active Medications Acetaminophen (Acetaminophen 325 Mg Tablet) 650 mg PO Q6H PRN PRN Reason: Pain, Mild 1-3,fever,headache Last Admin: 05/20/25 13:16 Dose: 650 mg Documented By: ASHLEY Alprazolam (Alprazolam 0.5 Mg Tablet) 0.5 mg PO BEDTIME PRN PRN Reason: Anxiety Last Admin: 05/21/25 17:47 Dose: 0.5 mg Documented By: ASHLEY Calcium Carbonate (Calcium Carbonate 750 Mg Tab.Chew) 750 mg PO Q4H PRN PRN Reason: Heartburn Carbidopa/Levodopa (Carbidopa/Levodopa Cr 25/100 Tablet.Er) 1 tab PO BEDTIME [facility] Last Admin: 05/21/25 20:19 Dose: 1 tab Documented By: MAHOGANY Carbidopa/Levodopa (Carbidopa/Levodopa Cr 50/200 Tablet.Er) 1 tab PO BID@0730,1630 [facility] Last Admin: 05/22/25 08:11 Dose: 1 tab Documented By: REKHA Diltiazem HCl (Diltiazem Hcl Cd 180 Mg Cap.Er.24h) 180 mg PO DAILY [facility]; Protocol Last Admin: 05/22/25 08:10 Dose: 180 mg Documented By: REKHA Docusate Sodium (Docusate Sodium 100 Mg Capsule) 100 mg PO DAILY [facility] Last Admin: 05/22/25 08:11 Dose: 100 mg Documented By: REKHA Doxazosin Mesylate (Doxazosin Mesylate 2 Mg Tablet) 8 mg PO BEDTIME [facility]; Protocol On Hold: 05/20/25 19:40 Last Admin: 05/19/25 19:49 Dose: 8 mg Documented By: WENDIE Gabapentin (Gabapentin 100 Mg Capsule) 100 mg PO BEDTIME [facility] Last Admin: 05/21/25 20:19 Dose: 100 mg Documented By: MAHOGANY Magnesium Hydroxide (Milk Of Magnesia 30 Ml Oral.Susp) 30 ml PO DAILY PRN PRN Reason: Constipation Melatonin (Melatonin 3 Mg Tablet) 6 mg PO BEDTIME PRN PRN Reason: Insomnia Last Admin: 05/21/25 20:19 Dose: 6 mg Documented By: MAHOGANY Modafinil (Modafinil 100 Mg Tablet) 100 mg PO DAILY [facility] Last Admin: 05/22/25 08:10 Dose: 100 mg Documented By: REKHA Olanzapine (Olanzapine 10 Mg Vial) 2.5 mg IM DAILY PRN PRN Reason: agitation Last Admin: 05/19/25 20:37 Dose: 2.5 mg Documented By: WENDIE Oxycodone HCl (Oxycodone Hcl Immed Release 5 Mg Tablet) 2.5 mg PO Q6H PRN PRN Reason: Pain, Severe (Pain Scale 7-10) Last Admin: 05/21/25 15:50 Dose: 2.5 mg Documented By: ASHLEY Psyllium Hydrophilic Mucilloid (Psyllium Seed 3.7 Gm Packet) 3.7 gm PO DAILY [facility] Last Admin: 05/22/25 08:11 Dose: 3.7 gm Documented By: REKHA Sodium Chloride (0.9 % Sodium Chloride Flush 3 Ml Syringe) [facility] Last Admin: 05/22/25 08:11 Dose: 3 ml Documented By: REKHA Trazodone HCl (Trazodone Hcl 50 Mg Tablet) 50 mg PO BEDTIME [facility] Last Admin: 05/21/25 20:18 Dose: 50 mg Documented By: MAHOGANY Warfarin Sodium (Warfarin Sodium 2.5 Mg Tablet) 2.5 mg PO Fr@1800 [facility] Last Admin: 05/21/25 17:46 Dose: 2.5 mg Documented By: BROMelly Warfarin Sodium (Warfarin Sodium 5 Mg Tablet) 5 mg PO SuMoTuWeThSa@1800 [facility] Last Admin: 05/20/25 17:53 Dose: 5 mg Documented By: ASHLEY Labs 05/22/25 07:14 05/22/25 07:14 Labs: Laboratory Results - last 24 hr 05/21/25 05/22/25 14:45 07:14 MCV 87.1 MCH 28.7 MCHC 32.9 RDW 13.6 Plt Count 188 MPV 9.5 Absolute Nucleated RBC 0.000 Nucleated RBC % (auto) 0.0 PT 28.7 H INR 2.5 H Anion Gap 9 L Estim Creat Clear Calc 98.6 Estimated GFR > 60 Random Glucose 98 Calcium 8.2 L Urine Color RED Urine Appearance Turbid Urine pH 6.5 Ur Specific [place] 1.025 Urine Protein 300 (3+) H Urine Glucose (UA) Negative Urine Ketones Negative Urine Blood Large (3+) H Urine Nitrite Negative Ur Leukocyte Esterase Trace H Urine RBC >20 H Urine WBC 0-5 Ur Squamous Epith Cells 0-2 Urine Bacteria Trace Hyaline Casts 0-2 Assessment and Plan (1) Fecal impaction: Status: Acute Plan 74M PMH parkinsons with lewy body dementia, chronic afib on warfarin, history of provoked DVT, BPH, presented with AMS Severe sepsis and acute metabolic encephalopathy due to suspected urinary tract infection with multidrug resistant organism due to urinary retention Hemphill catheter placed, Urology switched from terazosin to doxazosin, keeping hemphill for 4 weeks, intermittent plugging, s/p 4 days empiric meropenem cultures negative, dced abx Avoid Haldol if delirious, can use atypical antipsychotics mental status appears back to baseline Chronic AFib verapamil, warfarin Parkinson's with Lewy body dementia Sinemet DVT prophylaxis-warfarin DNR/DNI reason for continued hospitalization:dispo planning Quality Stroke Does the patient have a stroke diagnosis?: No VTE Prior VTE?: No VTE Risk Level:: Medical - moderate - high VTE Device Contraindication: Treatment Not Indicated VTE Drug Contraindication: N/A - Med Ordered
[2025-05-22] MEDS: Carbidopa/Levodopa CR 25/100 TABLET.ER 1 TAB PO (20:33)
[2025-05-23] VITALS (7 sets, daily range): BP systolic 117–161; BP diastolic 66–91; PULSE 55–110; RESP 16–18; TEMP 36.1–36.9; O2SAT 94–100
[2025-05-23 08:59] LABS: INTERNATIONAL NORM RATIO 1.8 (0.9-1.1); Prothrombin Time 21.2 SEC (10.9-12.4)
[2025-05-23] MEDS: Carbidopa/Levodopa CR 50/200 TABLET.ER 1 TAB PO ×2 (09:22→17:33)
[2025-05-23] MEDS: 0.9 % Sodium Chloride Flush 3 ML SYRINGE IVFLUSH ×2 (09:22→17:33)
[2025-05-23] MEDS: dilTIAZem HCL CD 180 MG CAP.ER.24H PO (09:22)
[2025-05-23] MEDS: Psyllium seed 3.7 GM PACKET PO (09:22)
--- NOTE | 2025-05-23 10:13 | HO.PM.IMPN ---
Subjective Subjective Date of Service: 05/23/25 Interval History: hematuria resolved Physical Exam Vital Signs: Vital Signs: Last Vital Signs Temp 98.2 F 05/23/25 08:00 Pulse 85 05/23/25 09:22 Resp 16 05/23/25 08:00 BP 130/80 05/23/25 09:22 Pulse Ox 97 05/23/25 08:00 O2 Del Method Room Air 05/23/25 08:00 BMI result Body Mass Index 24.8 Const: General: cooperative, healthy appearing, comfortable and no acute distress Orientation/consciousness: patient oriented x3 HEENT: Face and sinus: Yes normal facial exam Mouth: moist mucous membranes Neck: Neck: Yes normal visual inspection, Yes full ROM and Yes trachea midline Chest: Chest palpation & inspection: normal inspection of the chest Resp: Effort & Inspection: normal respiratory effort, able to speak in complete sentences and no respiratory distress GI: Inspection: Yes normal to inspection Back/Spine/Pelvis: Cervical Spine: normal cervical lordosis Thoracic/Lumbar Spine: thoracic and lumbar spine normal to inspection Skin: General skin exam: no rashes or lesions noted Neuro: General: patient oriented x3, tone normal and moves all extremities Extrem: General: Yes normal to inspection and Yes capillary refill normal Objective Data Active Medications Acetaminophen (Acetaminophen 325 Mg Tablet) 650 mg PO Q6H PRN PRN Reason: Pain, Mild 1-3,fever,headache Last Admin: 05/22/25 15:57 Dose: 650 mg Documented By: REKHA Alprazolam (Alprazolam 0.5 Mg Tablet) 0.5 mg PO BEDTIME PRN PRN Reason: Anxiety Last Admin: 05/22/25 19:38 Dose: 0.5 mg Documented By: IVANNA Comments: for anxiety Calcium Carbonate (Calcium Carbonate 750 Mg Tab.Chew) 750 mg PO Q4H PRN PRN Reason: Heartburn Carbidopa/Levodopa (Carbidopa/Levodopa Cr 25/100 Tablet.Er) 1 tab PO BEDTIME [facility] Last Admin: 05/22/25 20:33 Dose: 1 tab Documented By: IVANNA Carbidopa/Levodopa (Carbidopa/Levodopa Cr 50/200 Tablet.Er) 1 tab PO BID@0730,1630 [facility] Last Admin: 05/23/25 09:22 Dose: 1 tab Documented By: SON Diltiazem HCl (Diltiazem Hcl Cd 180 Mg Cap.Er.24h) 180 mg PO DAILY [facility]; Protocol Last Admin: 05/23/25 09:22 Dose: 180 mg Documented By: SON Docusate Sodium (Docusate Sodium 100 Mg Capsule) 100 mg PO DAILY [facility] Last Admin: 05/23/25 09:22 Dose: 100 mg Documented By: SON Doxazosin Mesylate (Doxazosin Mesylate 2 Mg Tablet) 8 mg PO BEDTIME [facility]; Protocol On Hold: 05/20/25 19:40 Last Admin: 05/19/25 19:49 Dose: 8 mg Documented By: WENDIE Gabapentin (Gabapentin 100 Mg Capsule) 100 mg PO BEDTIME [facility] Last Admin: 05/22/25 20:32 Dose: 100 mg Documented By: IVANNA Magnesium Hydroxide (Milk Of Magnesia 30 Ml Oral.Susp) 30 ml PO DAILY PRN PRN Reason: Constipation Melatonin (Melatonin 3 Mg Tablet) 6 mg PO BEDTIME PRN PRN Reason: Insomnia Last Admin: 05/22/25 20:32 Dose: 6 mg Documented By: IVANNA Comments: requested to help promote sleep Modafinil (Modafinil 100 Mg Tablet) 100 mg PO DAILY [facility] Last Admin: 05/23/25 09:22 Dose: 100 mg Documented By: SON Olanzapine (Olanzapine 10 Mg Vial) 2.5 mg IM DAILY PRN PRN Reason: agitation Last Admin: 05/19/25 20:37 Dose: 2.5 mg Documented By: WENDIE Oxycodone HCl (Oxycodone Hcl Immed Release 5 Mg Tablet) 2.5 mg PO Q6H PRN PRN Reason: Pain, Severe (Pain Scale 7-10) Last Admin: 05/21/25 15:50 Dose: 2.5 mg Documented By: ASHLEY Psyllium Hydrophilic Mucilloid (Psyllium Seed 3.7 Gm Packet) 3.7 gm PO DAILY [facility] Last Admin: 05/23/25 09:22 Dose: 3.7 gm Documented By: SON Sodium Chloride (0.9 % Sodium Chloride Flush 3 Ml Syringe) [facility] Last Admin: 05/23/25 09:22 Dose: 3 ml Documented By: SON Trazodone HCl (Trazodone Hcl 50 Mg Tablet) 50 mg PO BEDTIME [facility] Last Admin: 05/22/25 20:33 Dose: 50 mg Documented By: IVANNA Warfarin Sodium (Warfarin Sodium 2.5 Mg Tablet) 2.5 mg PO Fr@1800 [facility] On Hold: 05/22/25 11:12 Last Admin: 05/21/25 17:46 Dose: 2.5 mg Documented By: ASHLEY Warfarin Sodium (Warfarin Sodium 5 Mg Tablet) 5 mg PO SuMoTuWeThSa@1800 [facility] On Hold: 05/22/25 11:12 Last Admin: 05/20/25 17:53 Dose: 5 mg Documented By: ASHLEY Labs 05/22/25 07:14 05/22/25 07:14 Labs: Laboratory Results - last 24 hr 05/23/25 06:32 PT 21.2 H D INR 1.8 H Microbiology Microbiology Results: Microbiology 05/17/25 10:57 Blood Culture - Final Blood - Venous No growth after 5 days. 05/17/25 10:43 Blood Culture - Final Blood - Venous No growth after 5 days. Assessment and Plan (1) Fecal impaction: Status: Acute Plan 74M PMH parkinsons with lewy body dementia, chronic afib on warfarin, history of provoked DVT, BPH, presented with AMS Severe sepsis and acute metabolic encephalopathy due to suspected urinary tract infection with multidrug resistant organism due to urinary retention Hemphill catheter placed, Urology switched from terazosin to doxazosin, keeping hemphill for 4 weeks, intermittent plugging, s/p 4 days empiric meropenem cultures negative, dced abx, repeat ua with trace bacteria so reculturing hematuria has resolved Avoid Haldol if delirious, can use atypical antipsychotics mental status appears back to baseline Chronic AFib verapamil, warfarin Parkinson's with Lewy body dementia Sinemet DVT prophylaxis-warfarin DNR/DNI reason for continued hospitalization:dispo planning/repeat culture pedning Quality Stroke Does the patient have a stroke diagnosis?: No VTE Prior VTE?: No VTE Risk Level:: Medical - moderate - high VTE Device Contraindication: Treatment Not Indicated VTE Drug Contraindication: N/A - Med Ordered
--- NOTE | 2025-05-23 19:23 | PC.NURSE ---
Patient has been without a sitter at bedside since 0900 this morning. patient easy to redirect, remained calm and appropriate throughout shift. High fall risk measures remain in place, call childress within reach.
[2025-05-23] MEDS: Carbidopa/Levodopa CR 25/100 TABLET.ER 1 TAB PO (21:47)
[2025-05-24] MEDS: OLANZapine 10 MG VIAL 2.5 MG IM (02:13)
[2025-05-24 04:00] VITALS: BP 136/87; PULSE 109; RESP 16; TEMP 36.4; O2SAT 96
[2025-05-24 07:15] VITALS: BP 145/75; PULSE 72; RESP 20; TEMP 36.2; O2SAT 93
[2025-05-24 07:33] LABS: INTERNATIONAL NORM RATIO 1.5 (0.9-1.1); Prothrombin Time 17.5 SEC (10.9-12.4)
[2025-05-24] MEDS: Carbidopa/Levodopa CR 50/200 TABLET.ER 1 TAB PO ×2 (09:02→16:40)
[2025-05-24] MEDS: dilTIAZem HCL CD 180 MG CAP.ER.24H PO (09:02)
[2025-05-24] MEDS: Psyllium seed 3.7 GM PACKET PO (09:03)
--- NOTE | 2025-05-24 09:31 | HO.PM.IMPN ---
Subjective Subjective Date of Service: 05/24/25 Interval History: hematuria resolved Physical Exam Vital Signs: Vital Signs: Last Vital Signs Temp 97.1 F 05/24/25 07:15 Pulse 72 05/24/25 07:15 Resp 20 05/24/25 07:15 BP 145/75 H 05/24/25 07:15 Pulse Ox 93 05/24/25 07:15 O2 Del Method Room Air 05/24/25 07:15 BMI result Body Mass Index 24.8 Const: General: cooperative, healthy appearing, comfortable and no acute distress Orientation/consciousness: patient oriented x3 HEENT: Face and sinus: Yes normal facial exam Mouth: moist mucous membranes Neck: Neck: Yes normal visual inspection, Yes full ROM and Yes trachea midline Chest: Chest palpation & inspection: normal inspection of the chest Resp: Effort & Inspection: normal respiratory effort, able to speak in complete sentences and no respiratory distress GI: Inspection: Yes normal to inspection Back/Spine/Pelvis: Cervical Spine: normal cervical lordosis Thoracic/Lumbar Spine: thoracic and lumbar spine normal to inspection Skin: General skin exam: no rashes or lesions noted Neuro: General: patient oriented x3, tone normal and moves all extremities Extrem: General: Yes normal to inspection and Yes capillary refill normal Objective Data Active Medications Acetaminophen (Acetaminophen 325 Mg Tablet) 650 mg PO Q6H PRN PRN Reason: Pain, Mild 1-3,fever,headache Last Admin: 05/22/25 15:57 Dose: 650 mg Documented By: REKHA Alprazolam (Alprazolam 0.5 Mg Tablet) 0.5 mg PO BEDTIME PRN PRN Reason: Anxiety Last Admin: 05/23/25 21:47 Dose: 0.5 mg Documented By: NICOLE Calcium Carbonate (Calcium Carbonate 750 Mg Tab.Chew) 750 mg PO Q4H PRN PRN Reason: Heartburn Carbidopa/Levodopa (Carbidopa/Levodopa Cr 25/100 Tablet.Er) 1 tab PO BEDTIME [facility] Last Admin: 05/23/25 21:47 Dose: 1 tab Documented By: NICOLE Carbidopa/Levodopa (Carbidopa/Levodopa Cr 50/200 Tablet.Er) 1 tab PO BID@0730,1630 [facility] Last Admin: 05/24/25 09:02 Dose: 1 tab Documented By: TARIK Diltiazem HCl (Diltiazem Hcl Cd 180 Mg Cap.Er.24h) 180 mg PO DAILY [facility]; Protocol Last Admin: 05/24/25 09:02 Dose: 180 mg Documented By: TARIK Docusate Sodium (Docusate Sodium 100 Mg Capsule) 100 mg PO DAILY [facility] Last Admin: 05/24/25 09:02 Dose: 100 mg Documented By: TARIK Doxazosin Mesylate (Doxazosin Mesylate 2 Mg Tablet) 8 mg PO BEDTIME [facility]; Protocol On Hold: 05/20/25 19:40 Last Admin: 05/19/25 19:49 Dose: 8 mg Documented By: WENDIE Gabapentin (Gabapentin 100 Mg Capsule) 100 mg PO BEDTIME [facility] Last Admin: 05/23/25 21:47 Dose: 100 mg Documented By: NICOLE Magnesium Hydroxide (Milk Of Magnesia 30 Ml Oral.Susp) 30 ml PO DAILY PRN PRN Reason: Constipation Melatonin (Melatonin 3 Mg Tablet) 6 mg PO BEDTIME PRN PRN Reason: Insomnia Last Admin: 05/23/25 21:47 Dose: 6 mg Documented By: NICOLE Modafinil (Modafinil 100 Mg Tablet) 100 mg PO DAILY [facility] Last Admin: 05/24/25 09:02 Dose: 100 mg Documented By: TARIK Olanzapine (Olanzapine 10 Mg Vial) 2.5 mg IM DAILY PRN PRN Reason: agitation Last Admin: 05/24/25 02:13 Dose: 2.5 mg Documented By: ANISH Oxycodone HCl (Oxycodone Hcl Immed Release 5 Mg Tablet) 2.5 mg PO Q6H PRN PRN Reason: Pain, Severe (Pain Scale 7-10) Last Admin: 05/21/25 15:50 Dose: 2.5 mg Documented By: ASHLEY Psyllium Hydrophilic Mucilloid (Psyllium Seed 3.7 Gm Packet) 3.7 gm PO DAILY [facility] Last Admin: 05/24/25 09:03 Dose: 3.7 gm Documented By: TARIK Sodium Chloride (0.9 % Sodium Chloride Flush 3 Ml Syringe) 3 ml IVFLUSH QSHIFT [facility] Last Admin: 05/24/25 09:03 Dose: Not Given Documented By: TARIK Non-Admin Reason: No Access Trazodone HCl (Trazodone Hcl 50 Mg Tablet) 50 mg PO BEDTIME [facility] Last Admin: 05/23/25 21:47 Dose: 50 mg Documented By: DAMON-HAILEYZEMelly Warfarin Sodium (Warfarin Sodium 2.5 Mg Tablet) 2.5 mg PO Fr@1800 [facility] Last Admin: 05/21/25 17:46 Dose: 2.5 mg Documented By: BROMelly Warfarin Sodium (Warfarin Sodium 5 Mg Tablet) 5 mg PO SuMoTuWeThSa@1800 [facility] Last Admin: 05/23/25 17:33 Dose: 5 mg Documented By: SON Labs 05/22/25 07:14 05/22/25 07:14 Labs: Laboratory Results - last 24 hr 05/24/25 07:10 PT 17.5 H INR 1.5 H Microbiology Microbiology Results: Microbiology 05/21/25 14:45 Urine Culture - Final Urine clean catch - Clean Catch Midstream No growth. Assessment and Plan (1) Fecal impaction: Status: Acute Plan 74M PMH parkinsons with lewy body dementia, chronic afib on warfarin, history of provoked DVT, BPH, presented with AMS Severe sepsis and acute metabolic encephalopathy due to suspected urinary tract infection with multidrug resistant organism due to urinary retention Hemphill catheter placed, Urology switched from terazosin to doxazosin, keeping hemphill for 4 weeks, intermittent plugging, s/p 4 days empiric meropenem cultures negative, dced abx, repeat ua with trace bacteria - culture negative hematuria has resolved Avoid Haldol if delirious, can use atypical antipsychotics mental status appears back to baseline Chronic AFib verapamil, warfarin Parkinson's with Lewy body dementia Sinemet DVT prophylaxis-warfarin DNR/DNI reason for continued hospitalization:dispo planning Quality Stroke Does the patient have a stroke diagnosis?: No VTE Prior VTE?: No VTE Risk Level:: Medical - moderate - high VTE Device Contraindication: Treatment Not Indicated VTE Drug Contraindication: N/A - Med Ordered
--- NOTE | 2025-05-24 09:35 | PM.DS ---
DS: Providers Provider Date of Service: 05/26/25 Date of admission: 05/17/25 16:33 Date of discharge: 05/26/25 Primary care physician: Misbah Jackson MD Consults: 05/17/25 17:30 Consult to Urology Routine Consulting Provider: [facility] Urology Services Reason for consultation: urinary retention; hematuria DS: Diagnosis Discharge Diagnosis (1) Fecal impaction: Status: Acute DS: Summary Hospital Course Hospital Course: from initial hpi: 74M PMH parkinsons with lewy body dementia, chronic afib on warfarin, history of provoked DVT, BPH, presented with AMS. At baseline patient lives at home with his . Ambulates with a walker. Can communicate and is usually aware of family members, does get confused with hallucinations, needs help with most ADLs. Patient recently treated for suspected UTI with coronary back to her with course of fosfomycin and Bactrim. Appear to have some improvement but after completing started to become more confused and weak. EMS was called patient found to be hypotensive. In ED given 30 cc/kilos, blood pressure improved from systolic of 70s to low 100s. Noted to have urinary retention, Hemphill placed, urine with some RBCs but no bacteria, but fairly cloudy with sediment on exam. CT abdomen showed suspected stercoral involving the rectum, grossly distended bladder. hospital course: Patient was admitted for severe sepsis and acute metabolic encephalopathy due to suspected urinary tract infection with multidrug resistant organisms due to urinary retention. Hemphill catheter was placed was seen by Urology who switched tamsulosin to doxazosin, recommended keeping Hemphill for 4 weeks with intermittent plugging and then doing voiding trial. Patient received 4 days of empiric meropenem, cultures come back negative and antibiotic was discontinued. Course was complicated with hematuria which has resolved. Patient's mental status returned to baseline. Was seen by physical therapy recommended short-term rehab to which patient will be discharged she is expected require less than 30 days. For chronic AFib was continued on verapamil and warfarin. For Parkinson's with body dementia he was continued on Sinemet. Time Attestation Discharge Coordination Time (in mins): 39 Quality: Safe Use of Opioids Does Pt have an Active Cancer Diagnosis on the Problem List?: No Quality: Stroke Does the patient have a stroke diagnosis?: No Physical Exam Vital Signs: Vital Signs: Last Vital Signs Temp 97.1 F 05/24/25 07:15 Pulse 72 05/24/25 07:15 Resp 20 05/24/25 07:15 BP 145/75 H 05/24/25 07:15 Pulse Ox 93 05/24/25 07:15 O2 Del Method Room Air 05/24/25 07:15 BMI result Body Mass Index 24.8 Const: General: cooperative, healthy appearing, comfortable and no acute distress Orientation/consciousness: patient oriented x3 HEENT: Face and sinus: Yes normal facial exam Mouth: moist mucous membranes Neck: Neck: Yes normal visual inspection, Yes full ROM and Yes trachea midline Chest: Chest palpation & inspection: normal inspection of the chest Resp: Effort & Inspection: normal respiratory effort, able to speak in complete sentences and no respiratory distress GI: Inspection: Yes normal to inspection Back/Spine/Pelvis: Cervical Spine: normal cervical lordosis Thoracic/Lumbar Spine: thoracic and lumbar spine normal to inspection Skin: General skin exam: no rashes or lesions noted Neuro: General: patient oriented x3, tone normal and moves all extremities Extrem: General: Yes normal to inspection and Yes capillary refill normal DS: Data Data Completed and Pending Labs on day of discharge: Laboratory Results - last 24 hr 05/24/25 07:10 PT 17.5 H INR 1.5 H Discharge Plan Discharge Anticipated Discharge Date/Time: 05/24/25 09:32 Patient Disposition: Xfer [facility] Discharge Diagnosis: stercocolitis, urinary retention Referrals: Seun Rose MD [Physician, Urology] - 1 Week Misbah Jackson MD [Primary Care Provider, Internal Medicine] - 1 Week Discharge Medications: New Hydrocil Instant Packet 1 packet PO DAILY Qty: 0 0RF doxazosin 2 mg Tablet 8 mg PO BEDTIME Qty: 0 0RF Protocol: Hold for SBP< HOLD for SBP < : 90 magnesium hydroxide [Milk of Magnesia] 400 mg/5 mL Suspension 30 ml PO DAILY PRN (Reason: Constipation) Qty: 0 0RF Continued diltiazem HCl [Cardizem CD] 180 mg capsule,extended release 24hr 180 mg PO DAILY Qty: 30 3RF trazodone 50 mg tablet 50 mg PO BEDTIME warfarin 5 mg tablet 5 mg PO SUMOTUWETHSA@1700 docusate sodium 100 mg capsule 100 mg PO DAILY gabapentin 100 mg capsule 100 mg PO BEDTIME modafinil 100 mg tablet 100 mg PO DAILY carbidopa-levodopa 25-100 mg tablet extended release 1 tab PO BEDTIME carbidopa-levodopa 50-200 mg tablet extended release 1 tab PO BID@0730,1630 warfarin 5 mg tablet 2.5 mg PO FR@1700 alprazolam 0.5 mg tablet 0.5 mg PO BEDTIME PRN (Reason: Anxiety) Discontinued tamsulosin 0.4 mg capsule 0.4 mg PO DAILY@1700 Discharge Orders: Discharge Order (Routine); Ordered 05/25/25 Ordered By: Delonte Pugh Diet: Advance to usual diet Activity on Discharge: As tolerated Stand Alone Forms: Patient Portal Discharge page Print Language: Polish Care Plan Goals: recovery Health Concerns: urinary retention, constipation Plan of Treatment: continue stool softeners, laxatives hemphill for 4 weeks, then follow up with urology for possible voiding trial flomax changed to doxazosin Assessment: see above
[2025-05-24 10:53] VITALS: BP 147/78; PULSE 80; RESP 18; TEMP 36.4; O2SAT 95
[2025-05-24 15:03] VITALS: BP 96/55; PULSE 50; RESP 16; TEMP 37.3; O2SAT 95
--- NOTE | 2025-05-24 15:18 | MHC.CM.PN ---
Pt accepted STR bed at [facility] [place], they are pursuing ins. auth.
[2025-05-24 19:31] VITALS: BP 124/68; PULSE 80; RESP 16; TEMP 36.8; O2SAT 100
[2025-05-24] MEDS: Carbidopa/Levodopa CR 25/100 TABLET.ER 1 TAB PO (20:27)
[2025-05-24 23:05] VITALS: BP 116/76; PULSE 77; RESP 18; TEMP 36.3; O2SAT 96
[2025-05-25 03:09] VITALS: BP 104/65; PULSE 76; RESP 18; TEMP 36.2; O2SAT 98
[2025-05-25 06:58] LABS: INTERNATIONAL NORM RATIO 1.6 (0.9-1.1); Prothrombin Time 18.4 SEC (10.9-12.4)
[2025-05-25 07:38] VITALS: BP 118/76; PULSE 87; RESP 18; TEMP 36.2; O2SAT 96
[2025-05-25] MEDS: dilTIAZem HCL CD 180 MG CAP.ER.24H PO (10:50)
[2025-05-25] MEDS: Carbidopa/Levodopa CR 50/200 TABLET.ER 1 TAB PO ×2 (10:50→18:29)
[2025-05-25] MEDS: 0.9 % Sodium Chloride Flush 3 ML SYRINGE IVFLUSH (10:51)
--- NOTE | 2025-05-25 10:51 | P.PNIM_ITS ---
Subjective Subjective Date of Service: 05/25/25 Interval History: hematuria resolved, had bm Physical Exam 2 Vital Signs: Vital Signs: Last Vital Signs Temp 97.1 F 05/25/25 07:38 Pulse 87 05/25/25 07:38 Resp 18 05/25/25 07:38 BP 118/76 05/25/25 07:38 Pulse Ox 96 05/25/25 07:38 O2 Del Method Room Air 05/25/25 07:38 BMI result Body Mass Index 24.8 Const: General: cooperative, healthy appearing, comfortable and no acute distress Orientation/consciousness: patient oriented x3 HEENT: Face and sinus: Yes normal facial exam Mouth: moist mucous membranes Neck: Neck: Yes normal visual inspection, Yes full ROM and Yes trachea midline Chest: Chest palpation & inspection: normal inspection of the chest Resp: Effort & Inspection: normal respiratory effort, able to speak in complete sentences and no respiratory distress GI: Inspection: Yes normal to inspection Back/Spine/Pelvis: Cervical Spine: normal cervical lordosis Thoracic/Lumbar Spine: thoracic and lumbar spine normal to inspection Skin: General skin exam: no rashes or lesions noted Neuro: General: patient oriented x3, tone normal and moves all extremities Extrem: General: Yes normal to inspection and Yes capillary refill normal Objective Data Active Medications Acetaminophen (Acetaminophen 325 Mg Tablet) 650 mg PO Q6H PRN PRN Reason: Pain, Mild 1-3,fever,headache Last Admin: 05/22/25 15:57 Dose: 650 mg Documented By: REKHA Alprazolam (Alprazolam 0.5 Mg Tablet) 0.5 mg PO BEDTIME PRN PRN Reason: Anxiety Last Admin: 05/24/25 18:11 Dose: 0.5 mg Documented By: SOMMER Calcium Carbonate (Calcium Carbonate 750 Mg Tab.Chew) 750 mg PO Q4H PRN PRN Reason: Heartburn Carbidopa/Levodopa (Carbidopa/Levodopa Cr 25/100 Tablet.Er) 1 tab PO BEDTIME [facility] Last Admin: 05/24/25 20:27 Dose: 1 tab Documented By: JARAD Carbidopa/Levodopa (Carbidopa/Levodopa Cr 50/200 Tablet.Er) 1 tab PO BID@0730,1630 [facility] Last Admin: 05/24/25 16:40 Dose: 1 tab Documented By: SOMMER Diltiazem HCl (Diltiazem Hcl Cd 180 Mg Cap.Er.24h) 180 mg PO DAILY [facility]; Protocol Last Admin: 05/24/25 09:02 Dose: 180 mg Documented By: TARIK Docusate Sodium (Docusate Sodium 100 Mg Capsule) 100 mg PO DAILY [facility] Last Admin: 05/24/25 09:02 Dose: 100 mg Documented By: TARIK Doxazosin Mesylate (Doxazosin Mesylate 2 Mg Tablet) 8 mg PO BEDTIME [facility]; Protocol On Hold: 05/20/25 19:40 Last Admin: 05/19/25 19:49 Dose: 8 mg Documented By: WENDIE Gabapentin (Gabapentin 100 Mg Capsule) 100 mg PO BEDTIME [facility] Last Admin: 05/24/25 20:27 Dose: 100 mg Documented By: JARAD Magnesium Hydroxide (Milk Of Magnesia 30 Ml Oral.Susp) 30 ml PO DAILY PRN PRN Reason: Constipation Melatonin (Melatonin 3 Mg Tablet) 6 mg PO BEDTIME PRN PRN Reason: Insomnia Last Admin: 05/24/25 20:28 Dose: 6 mg Documented By: JARAD Modafinil (Modafinil 100 Mg Tablet) 100 mg PO DAILY [facility] Last Admin: 05/24/25 09:02 Dose: 100 mg Documented By: TARIK Olanzapine (Olanzapine 10 Mg Vial) 2.5 mg IM DAILY PRN PRN Reason: agitation Last Admin: 05/24/25 02:13 Dose: 2.5 mg Documented By: ANISH Oxycodone HCl (Oxycodone Hcl Immed Release 5 Mg Tablet) 2.5 mg PO Q6H PRN PRN Reason: Pain, Severe (Pain Scale 7-10) Last Admin: 05/21/25 15:50 Dose: 2.5 mg Documented By: ASHLEY Psyllium Hydrophilic Mucilloid (Psyllium Seed 3.7 Gm Packet) 3.7 gm PO DAILY [facility] Last Admin: 05/24/25 09:03 Dose: 3.7 gm Documented By: TARIK Sodium Chloride (0.9 % Sodium Chloride Flush 3 Ml Syringe) 3 ml IVFLUSH QSHIFT [facility] Last Admin: 05/24/25 23:12 Dose: Not Given Documented By: JARAD Non-Admin Reason: No Access Trazodone HCl (Trazodone Hcl 50 Mg Tablet) 50 mg PO BEDTIME [facility] Last Admin: 05/24/25 20:27 Dose: 50 mg Documented By: JARAD Warfarin Sodium (Warfarin Sodium 2.5 Mg Tablet) 2.5 mg PO Fr@1800 RYAN Last Admin: 05/21/25 17:46 Dose: 2.5 mg Documented By: ASHLEY Warfarin Sodium (Warfarin Sodium 5 Mg Tablet) 5 mg PO SuMoTuWeThSa@1800 RYAN Last Admin: 05/24/25 18:12 Dose: 5 mg Documented By: SOMMER Labs 05/22/25 07:14 05/22/25 07:14 Labs: Laboratory Results - last 24 hr 05/25/25 05:50 PT 18.4 H INR 1.6 H Assessment and Plan (1) Fecal impaction: Status: Acute Plan 74M PMH parkinsons with lewy body dementia, chronic afib on warfarin, history of provoked DVT, BPH, presented with AMS Severe sepsis and acute metabolic encephalopathy due to suspected urinary tract infection with multidrug resistant organism due to urinary retention Hemphill catheter placed, Urology switched from terazosin to doxazosin, keeping hemphill for 4 weeks, intermittent plugging, s/p 4 days empiric meropenem cultures negative, dced abx, repeat ua with trace bacteria - culture negative hematuria has resolved Avoid Haldol if delirious, can use atypical antipsychotics mental status appears back to baseline constipation resolved Chronic AFib verapamil, warfarin Parkinson's with Lewy body dementia Sinemet DVT prophylaxis-warfarin DNR/DNI reason for continued hospitalization:dispo planning Quality Stroke Does the patient have a stroke diagnosis?: No VTE Prior VTE?: No VTE Risk Level:: Medical - moderate - high VTE Device Contraindication: Treatment Not Indicated VTE Drug Contraindication: N/A - Med Ordered
[2025-05-25 11:13] VITALS: BP 131/62; PULSE 89; RESP 17; TEMP 36.4; O2SAT 98
[2025-05-25] MEDS: oxyCODONE HCl Immed Release 5 MG TABLET 2.5 MG PO (14:09)
[2025-05-25 15:55] VITALS: BP 146/79; PULSE 81; RESP 18; TEMP 36.1; O2SAT 92
[2025-05-25 19:53] VITALS: BP 152/70; PULSE 97; RESP 16; TEMP 37.1; O2SAT 96
[2025-05-25] MEDS: Carbidopa/Levodopa CR 25/100 TABLET.ER 1 TAB PO (20:13)
[2025-05-25] MEDS: OLANZapine 10 MG VIAL 2.5 MG IM (23:22)
[2025-05-25 23:30] VITALS: RESP 16
[2025-05-26 00:22] VITALS: RESP 16
[2025-05-26 03:41] VITALS: BP 150/80; PULSE 110; RESP 16; TEMP 37.1; O2SAT 94
[2025-05-26 07:10] LABS: INTERNATIONAL NORM RATIO 1.6 (0.9-1.1); Prothrombin Time 18.2 SEC (10.9-12.4)
[2025-05-26 08:00] VITALS: BP 136/74; PULSE 90; RESP 16; TEMP 36.4; O2SAT 95
[2025-05-26] MEDS: Carbidopa/Levodopa CR 50/200 TABLET.ER 1 TAB PO (08:27)
[2025-05-26] MEDS: dilTIAZem HCL CD 180 MG CAP.ER.24H PO (08:27)
[2025-05-26] MEDS: Psyllium seed 3.7 GM PACKET PO (08:29)
[2025-05-26] MEDS: OLANZapine 10 MG VIAL 2.5 MG IM (09:03)
--- NOTE | 2025-05-26 11:25 | MHC.CM.PN ---
Second IMM 05/26/25, Pt. has been medically cleared for DC, he will go to [facility] [place] via BLS this afternoon.
[2025-05-26 12:00] VITALS: BP 133/70; PULSE 100; RESP 17; O2SAT 94
== END 2025-05-26 14:58 | disposition skilled nursing facility (03) | DRG 871 ==
LOC: HO.ED 15:03 → HO.EDOVER 17:13 → HO.IMC 05-18 12:57
PROVIDERS: Hospitalist; Admitting Provider Internal Medicine; Emergency Provider Emergency Medicine; PCP Internal Medicine; Visit Provider Internal Medicine
DX: A41.9 Sepsis, unspecified organism (principal); G93.41 Metabolic encephalopathy; I48.20 Chronic atrial fibrillation, unspecified; Z16.24 Resistance to multiple antibiotics; N39.0 Urinary tract infection, site not specified; Z66 Do not resuscitate; G31.83 Neurocognitive disorder with Lewy bodies; R65.20 Severe sepsis without septic shock; G20.A1 Parkinson's disease without dyskinesia, without mention of fluctuations; R31.9 Hematuria, unspecified; F02.80 Dementia in other diseases classified elsewhere, unspecified severity, without behavioral disturbance, psychotic disturbance, mood disturbance, and anxiety; K52.89 Other specified noninfective gastroenteritis and colitis; N40.1 Benign prostatic hyperplasia with lower urinary tract symptoms; R33.8 Other retention of urine; Z86.718 Personal history of other venous thrombosis and embolism; Z20.822 Contact with and (suspected) exposure to COVID-19; Z79.01 Long term (current) use of anticoagulants; Z79.899 Other long term (current) drug therapy
CPT/HCPCS: 36415; 70450; 71045; 74176; 80048; 80076; 81001; 81003; 83605; 83690; 83735; 83880; 84145; 84484; 85025; 85027; 85610; 86140; 87040; 87086; 87637; 93005; 97116; 97162; 97530; 99285; J1335; J2185; J2359; J3360; J7120

== ENCOUNTER → 2025-05-17 10:19 | Outpatient (BNV) | payer MEDICARE, SELFPAY | PROVIDERS: Emergency Provider Emergency Medicine; Visit Provider Radiology Diagnostic Radiology | DX: N32.89 Other specified disorders of bladder (principal); D35.02 Benign neoplasm of left adrenal gland; D35.01 Benign neoplasm of right adrenal gland; R41.0 Disorientation, unspecified; A41.9 Sepsis, unspecified organism; R53.1 Weakness | CPT/HCPCS: 70450; 71045; 74176 ==

== ENCOUNTER → 2025-05-17 10:19 | Outpatient (BNV) | payer MEDICARE, SELFPAY | PROVIDERS: Admitting Provider Internal Medicine; Emergency Provider Emergency Medicine; PCP Internal Medicine; Visit Provider Internal Medicine | DX: I48.91 Unspecified atrial fibrillation (principal); R94.31 Abnormal electrocardiogram [ECG] [EKG] | CPT/HCPCS: 93010 ==

== ENCOUNTER → 2025-05-17 16:33 | Outpatient (BNV) | payer MEDICARE, SELFPAY | PROVIDERS: Admitting Provider Internal Medicine; Emergency Provider Emergency Medicine; PCP Internal Medicine; Visit Provider Internal Medicine | DX: R33.8 Other retention of urine (principal) | CPT/HCPCS: 99223 ==

== ENCOUNTER → 2025-05-17 16:33 | Outpatient (BNV) | payer MEDICARE, SELFPAY | PROVIDERS: Admitting Provider Internal Medicine; Emergency Provider Emergency Medicine; PCP Internal Medicine; Visit Provider Urology | DX: R33.8 Other retention of urine (principal) | CPT/HCPCS: 99222 ==